=== PATIENT | male | born 1945 | race Caucasian/White ===

== ENCOUNTER → 2021-04-16 14:43 | Outpatient (BNVA) | payer MEDICARE, SELFPAY | PROVIDERS: PCP Nurse Practitioner; Visit Provider Urology | DX: N40.1 Benign prostatic hyperplasia with lower urinary tract symptoms (principal); R35.1 Nocturia; R39.12 Poor urinary stream | CPT/HCPCS: 51798; 99202 ==

== ENCOUNTER → 2021-06-05 09:52 | Outpatient (BNVA) | payer MEDICARE, SELFPAY | PROVIDERS: PCP Nurse Practitioner; Visit Provider Urology | DX: N40.1 Benign prostatic hyperplasia with lower urinary tract symptoms (principal); R35.1 Nocturia; R39.12 Poor urinary stream | CPT/HCPCS: 52000; 99212 ==

== ENCOUNTER → 2021-09-02 14:37 | Outpatient (BNVA) | payer MEDICARE, SELFPAY | PROVIDERS: PCP Nurse Practitioner; Visit Provider Urology | DX: N40.0 Benign prostatic hyperplasia without lower urinary tract symptoms (principal); R39.12 Poor urinary stream; R35.1 Nocturia; R39.15 Urgency of urination | CPT/HCPCS: Q3014 ==

== ENCOUNTER → 2021-10-29 14:51 | Outpatient (BNVA) | payer MEDICARE, SELFPAY | PROVIDERS: PCP Nurse Practitioner; Visit Provider Urology | DX: N40.1 Benign prostatic hyperplasia with lower urinary tract symptoms (principal); R35.0 Frequency of micturition; R39.15 Urgency of urination; R39.12 Poor urinary stream; N39.43 Post-void dribbling | CPT/HCPCS: 51798; 99212 ==

== ENCOUNTER 2021-12-08 09:42 | Outpatient (REF) | payer MEDICARE, SELFPAY ==
--- NOTE | 2021-12-08 10:50 | MHC.AU.AEV ---
Adult Audiological Evaluation Date of Visit: 12/08/21 Reason for Appointment: Patient has been noticing gradually increasing hearing difficulty. He finds himself saying huh? frequently and asking for repetition. He cannot hear when people try to talk to him from a distance or the next room over. He has difficulty understanding the dialogue in movies. History of vertigo. Recent ear infection in his left ear after an abrasion from using a Q-tip. Does patient feel they have a hearing loss?: Yes If Yes, Which Ear?: Both Ears Has hearing been tested previously?: No Hearing Handicap Inventory Does a hearing problem cause you to feel embarrassed when meeting new people?: Sometimes Does a hearing problem cause you to feel frustrated when talking to members of your family?: Sometimes Do you have difficulty when someone speaks in a whisper?: Yes Do you feel handicapped by a hearing problem?: Yes Does a hearing problem cause you difficulty when visiting friends, relatives, or neighbors?: Yes Does a hearing problem cause you to attend jehovah's witness service services less often than you would like?: No Does a hearing problem cause you to have arguments with family members?: No Does a hearing problem cause you difficulty when listening to TV or radio?: Yes Do you feel that any difficult with your hearing limits or hampers your personal or social life?: Sometimes Does a hearing problem cause you difficulty when in a restaurants with relatives or friends?: Yes HHIE SCORE: 26 Based on HHIE score, patient has: Severe perceived hearing handicap Ear History: Ear Deformity: None Reported Recent Ear Drainage: Left Ear Recent Ear Pain: Left Ear Family History of Hearing Loss?: Yes Recent Ear Infections: Left Ear Ear Infections in Childhood: None Reported History of Ear Wax Buildup: None Reported Previous Ear Surgery: None Reported Bothersome Tinnitus/Ringing/Noises in Ears: Both Ears Ear used on the phone: Right Ear Blocked/Full Sensation in Ear(s): Both Ears History of occupational noise exposure?: No History: Yes: [employer]- 6 months Medical History: Medical History: Patient reports history of numerous head injuries. Heart problems, hypertension, seizures, vertigo. Otoscopy: Right Ear: Unremarkable Left Ear: Unremarkable Tympanometry: Tympanometry performed due to: To assess integrity of the middle ear system Right Ear: Normal Middle Ear System (Type A) Left Ear: Normal Middle Ear System (Type A) Hearing Evaluation: Transducer(s) Used: Insert Earphones Method: Conventional Audiometry Stimuli Used: Pure Tones Right Ear: Description of Hearing: Normal/borderline to moderately-severe sensorineural hearing loss Left Ear: Description of Hearing: Normal/borderline to moderately-severe sensorineural hearing loss (left ear overall 5-10 dBHL worse than the right) Speech Recognition Threshold (SRT): Method Used: Recorded Lists Stimuli Used: Spondee Words Right Ear: 50 dBHL Left Ear: 50 dBHL Word Discrimination: Method: Monitored Live Voice Word Lists Used:: W-22 Right Ear: 84% at 80 dBHL Left Ear: 68% at 75 dBHL Most Comfortable Level (MCL): Right Ear: 80 dBHL Left Ear: 75 dBHL Recommendations: Audiological re-evaluation in one year. Follow-up with PCP or Ear, Nose, and Throat may be warranted to discuss asymmetry (left ear worse). Patient is a candidate for hearing aids. It is recommended that he contact his supplemental insurance to inquire about hearing aid benefits or discount plans. A product such as TV Ears may be beneficial to help him hear the television. Diagnosis: Primary Diagnosis: H90.3 Bilateral Sensorineural Hearing Loss Signature: Provider: Maya Perez, CCC-A
== END 2021-12-08 09:43 | disposition home or self-care (01) ==
LOC: HO.SH 09:42
PROVIDERS: Visit Provider Physician Assistant
DX: Z01.118 Encounter for examination of ears and hearing with other abnormal findings (principal); H90.3 Sensorineural hearing loss, bilateral
CPT/HCPCS: 92557; 92567

== ENCOUNTER → 2022-05-26 08:32 | Outpatient (BNVA) | payer MEDICARE, SELFPAY | PROVIDERS: PCP Nurse Practitioner; Visit Provider Urology | DX: N40.1 Benign prostatic hyperplasia with lower urinary tract symptoms (principal); R39.15 Urgency of urination; R39.12 Poor urinary stream; R35.1 Nocturia; N39.43 Post-void dribbling | CPT/HCPCS: 51798; 99212 ==

== ENCOUNTER → 2022-11-26 08:46 | Outpatient (BNVA) | payer MEDICARE, SELFPAY | PROVIDERS: PCP Nurse Practitioner; Visit Provider Urology | DX: N40.1 Benign prostatic hyperplasia with lower urinary tract symptoms (principal); R35.1 Nocturia; N39.43 Post-void dribbling | CPT/HCPCS: Q3014 ==

== ENCOUNTER 2023-05-28 08:30 | Outpatient (AMB) | payer MEDICARE, SELFPAY ==
--- NOTE | 2023-05-28 08:39 | MHC.OFFVIS ---
Intake Intake Visit Reasons: 6m follow up Intake Note: Patient is present for Follow Up PVR Urology Med: Terazosin, Tolterodine Antibiotic Allergy: None Blood Thinner: None Pharmacy: [facility] PVR: 0ML Allergies No Known Allergies Allergy (Verified 05/28/23 08:41) Medication List - Last Reconciled 05/28/23 by Med Doran MD atorvastatin 20 mg PO DAILY divalproex 1,000 mg PO BID fluticasone furoate-vilanterol 100-25 mcg/dose (Breo Ellipta) 1 ea inhalation DAILY folic acid 1 mg PO DAILY metoprolol succinate ER 100 mg PO BID multivitamin 1 tab PO DAILY olanzapine 5 mg PO DAILY oxybutynin chloride ER 5 mg PO DAILY 90 days sertraline 100 mg PO DAILY terazosin 10 mg PO BEDTIME 90 days thiamine HCl (vitamin B1) 100 mg PO BID thiamine mononitrate (vit B1) 100 mg PO BID zonisamide 200 mg PO BEDTIME HPI HPI Comments History of Present Illness Details Titus is a pleasant male. He is a patient of Dr. Brand. He seen for the following urologic conditions - lower urinary tract symptoms - postvoid dribbling - overactive bladder Combination anticholinergic and alpha danelle PVR 0 Continue good voiding parameters with combination terazosin 10 mg and tolterodine 2 mg Will switch to oxybutynin secondary to cost from his insurance company Overactive bladder Good response to quaternary anticholinergics Unable to afford co-pay Insurance company forcing prescription of oxybutynin As physician I will not be held responsible for any side effects from this medication - this will be the responsibility of the insurance company Lower urinary tract symptoms Longstanding with weakness of stream, urinary urgency and frequency with nocturia Current therapy combination therapy with terazosin 10 mg, tolterodine 2 mg Prior therapy terazosin 5 mg PSA 04/30 0.6 Cystoscopy 05/3121 grade 2 trabeculation with enlarged capacity Symptoms consistent with combination overactive bladder and stiff prostate Six month follow-up [facility] Medical History Angina pectoris Asthma Atrial fibrillation Bipolar 1 disorder BPH (benign prostatic hyperplasia) Chronic obstructive lung disease Review of Systems Const Denies chills and Denies fever(s) Card Reports no additional complaints and Denies syncope Resp Denies cough GI Denies abdominal pain and Denies heartburn Reports as per HPI and Denies change in libido Neuro Denies syncope Psych Denies change in libido Endo Denies change in libido Physical Exam Const General: cooperative, healthy appearing, comfortable and no acute distress Orientation/consciousness: patient oriented x3 HEENT Face and sinus: Yes normal facial exam Mouth: moist mucous membranes Neck Neck: Yes normal visual inspection, Yes full ROM and Yes trachea midline Chest Chest palpation & inspection: normal inspection of the chest Resp Effort & Inspection: normal respiratory effort, able to speak in complete sentences and no respiratory distress GI Inspection: Yes normal to inspection Back/Spine/Pelvis Cervical Spine: normal cervical lordosis Thoracic/Lumbar Spine: thoracic and lumbar spine normal to inspection Skin General skin exam: no rashes or lesions noted Neuro General: patient oriented x3, gait normal, tone normal and moves all extremities Extrem General: Yes normal to inspection and Yes capillary refill normal Office Procedures Post Void Residual Post Residual Void Post Void Residual (PVR): 0 [id number] Void Residual by ultrasound Results AMB Urinalysis, Automated UA Leukoctes 0 Jason/uL Last Edit by Maya Mejía [facility] on 05/28/23 08:50 UA Nitrite Negative Last Edit by Maya Mejía [facility] on 05/28/23 08:50 UA Urobilinogen 0.2 mg/dL Last Edit by Maya Mejía [facility] on 05/28/23 08:50 UA Protein 0 mg/dL Last Edit by Maya Mejía [facility] on 05/28/23 08:50 UA pH 6.5 Last Edit by Maya Mejía [facility] on 05/28/23 08:50 UA Blood 0 Gagan/uL Last Edit by Maya Mejía [facility] on 05/28/23 08:50 UA Specific [place] 1.010 Last Edit by Maya Mejía [facility] on 05/28/23 08:50 UA Ketone Negative Last Edit by Maya Mejía Tori on 05/28/23 08:50 UA Bilirubin 0 mg/dL Last Edit by Maya Mejía [facility] on 05/28/23 08:50 UA Glucose 0 mg/dL Last Edit by Maya Mejía [facility] on 05/28/23 08:50 Assessment & Plan Assessment & Plan (1) Urinary urgency: Code(s): R39.15 - Urgency of urination (2) Benign prostatic hyperplasia (BPH) with post-void dribbling: Code(s): N40.1 - Benign prostatic hyperplasia with lower urinary tract symptoms; N39.43 - Post-void dribbling (3) Nocturia more than twice per night: Code(s): R35.1 - Nocturia Plan 6 month follow-up Orders: Orders AMB Urinalysis Automated Today Z13.9 - Encounter for screening, unspecified AMB Post Void Residual by ultrasound Today N39.43 - Post-void dribbling, N40.1 - Benign prostatic hyperplasia with lower urinary tract symptoms Medications: Changed From tolterodine ER 2 mg PO DAILY 90 days 90 caps 1RF R39.15 - Urgency of urination To oxybutynin chloride ER 5 mg PO DAILY 90 days 90 tabs 1RF R39.15 - Urgency of urination Patient Instructions: Imaging studies, laboratory and physical exam results were discussed and reviewed in detail. No major barriers to patient understanding were identified. An opportunity to ask questions regarding the treatment plan was provided. All questions were answered. The patient expressed understanding and agreement with the above treatment plan. The patient is aware they should contact our office by phone for worsening of their current condition or the appearance of new urologic symptoms. Compliance is encouraged with any medications and followup testing that is ordered. It is a privilege to participate in the urologic care of your patient. If you have any questions or concerns regarding treatment for the above conditions, or other urologic issues, please do not hesitate to contact me. The office telephone contact is [phone]. This note is constructed using voice recognition software. While every effort has been made to ensure accuracy track production engineer errors may have been included. Yours sincerely, Dr Med Doran MD, [facility] - Urology Providers of Expert, Compassionate Care for the Genitourinary System Coding Level of Care Code Est Pt Level 4 (26172) Diagnoses Urinary urgency R39.15 Benign prostatic hyperplasia (BPH) with post-void dribbling N40.1; N39.43 Nocturia more than twice per night R35.1 CPT Codes Post Residual Void - PVR CPT Code: 74344-[id number] Void Residual by ultrasound ([id number])
== END 2023-05-28 09:12 | disposition home or self-care (01) ==
PROVIDERS: PCP Nurse Practitioner; Visit Provider Urology
DX: N40.1 Benign prostatic hyperplasia with lower urinary tract symptoms (principal); N39.43 Post-void dribbling; R35.1 Nocturia
CPT/HCPCS: 99214

== ENCOUNTER → 2023-05-28 08:30 | Outpatient (BNVA) | payer MEDICARE, SELFPAY | PROVIDERS: Visit Provider Urology | DX: N40.1 Benign prostatic hyperplasia with lower urinary tract symptoms (principal); N13.8 Other obstructive and reflux uropathy; N39.43 Post-void dribbling; N32.81 Overactive bladder; R35.1 Nocturia | CPT/HCPCS: 51798; 81003; 99212 ==

== ENCOUNTER 2024-01-18 10:42 | Outpatient (AMB) | payer MEDICARE, SELFPAY ==
--- NOTE | 2024-01-18 10:49 | A.OFFVIS_ITS ---
Intake Intake Visit Reasons: 6M Med Review(Confirmed) Intake Note: Patient is Present for Follow Up Urology Medication: Oxybutynin, Terazosin, Antibiotic Allergies: None Blood Thinners: None Pharmacy: [facility] PVR: 0 Patient states that he has been taking OTC medication for Diarrhea and he states that since he has been on this he has been experiencing frequency Allergies No Known Allergies Allergy (Verified 01/18/24 10:52) HPI HPI Comments History of Present Illness Details Titus is a pleasant male. He is a patient of Dr. Brand. He seen for the following urologic conditions - lower urinary tract symptoms - postvoid dribbling - overactive bladder Combination anticholinergic and alpha danelle PVR 0 Combination therapy with terazosin 10 mg and oxybutynin Noticing more urgency and frequency Recommend office cystoscopy Overactive bladder Good response to quaternary anticholinergics - tolterodine Unable to afford co-pay Insurance company forcing prescription of oxybutynin As physician I will not be held responsible for any side effects from this medication - this will be the responsibility of the insurance company who was aware of the side effects that anticholinergics cause on over 75-year-old patient is including confusion, memory loss. Lower urinary tract symptoms Longstanding with weakness of stream, urinary urgency and frequency with nocturia Current therapy combination therapy with terazosin 10 mg, tolterodine 2 mg Prior therapy terazosin 5 mg PSA 04/30 0.6 Cystoscopy 05/3121 grade 2 trabeculation with enlarged capacity Symptoms consistent with combination overactive bladder and stiff prostate Six month follow-up [facility] Medical History Asthma Bipolar 1 disorder Chronic obstructive lung disease Atrial fibrillation Angina pectoris BPH (benign prostatic hyperplasia) Review of Systems Const Denies chills and Denies fever(s) Card Reports no additional complaints and Denies syncope Resp Denies cough GI Denies abdominal pain and Denies heartburn Reports as per HPI and Denies change in libido Neuro Denies syncope Psych Denies change in libido Endo Denies change in libido Physical Exam Const General: cooperative, healthy appearing, comfortable and no acute distress Orientation/consciousness: patient oriented x3 HEENT Face and sinus: Yes normal facial exam Mouth: moist mucous membranes Neck Neck: Yes normal visual inspection, Yes full ROM and Yes trachea midline Chest Chest palpation & inspection: normal inspection of the chest Resp Effort & Inspection: normal respiratory effort, able to speak in complete sentences and no respiratory distress GI Inspection: Yes normal to inspection Back/Spine/Pelvis Cervical Spine: normal cervical lordosis Thoracic/Lumbar Spine: thoracic and lumbar spine normal to inspection Skin General skin exam: no rashes or lesions noted Neuro General: patient oriented x3, gait normal, tone normal and moves all extremities Extrem General: Yes normal to inspection and Yes capillary refill normal Office Procedures Post Void Residual Post Residual Void Post Void Residual (PVR): 0 [id number] Void Residual by ultrasound Assessment & Plan Assessment & Plan (1) Benign prostatic hyperplasia (BPH) with post-void dribbling: Code(s): N40.1 - Benign prostatic hyperplasia with lower urinary tract symptoms; N39.43 - Post-void dribbling (2) Urinary urgency: Code(s): R39.15 - Urgency of urination (3) Weak urinary stream: Code(s): R39.12 - Poor urinary stream Plan Cystoscopy office Orders: Orders AMB Post Void Residual by ultrasound Today N39.43 - Post-void dribbling, N40.1 - Benign prostatic hyperplasia with lower urinary tract symptoms Patient Instructions: Imaging studies, laboratory and physical exam results were discussed and reviewed in detail. No major barriers to patient understanding were identified. An opportunity to ask questions regarding the treatment plan was provided. All questions were answered. The patient expressed understanding and agreement with the above treatment plan. The patient is aware they should contact our office by phone for worsening of their current condition or the appearance of new urologic symptoms. Compliance is encouraged with any medications and followup testing that is ordered. It is a privilege to participate in the urologic care of your patient. If you have any questions or concerns regarding treatment for the above conditions, or other urologic issues, please do not hesitate to contact me. The office telephone contact is [phone]. This note is constructed using voice recognition software. While every effort has been made to ensure accuracy real estate investor errors may have been included. Yours sincerely, Dr Med Doran MD, [facility] - Urology Providers of Expert, Compassionate Care for the Genitourinary System Coding Level of Care Code Est Pt Level 4 (53898) Diagnoses Benign prostatic hyperplasia (BPH) with post-void dribbling N40.1; N39.43 Urinary urgency R39.15 Weak urinary stream R39.12 CPT Codes Post Residual Void - PVR CPT Code: 06571-[id number] Void Residual by ultrasound ([id number])
== END 2024-01-18 11:41 | disposition home or self-care (01) ==
PROVIDERS: PCP Nurse Practitioner; Visit Provider Urology
DX: N40.1 Benign prostatic hyperplasia with lower urinary tract symptoms (principal); N39.43 Post-void dribbling; R39.15 Urgency of urination; R39.12 Poor urinary stream
CPT/HCPCS: 99214

== ENCOUNTER → 2024-01-18 10:42 | Outpatient (BNVA) | payer MEDICARE, SELFPAY | PROVIDERS: PCP Nurse Practitioner; Visit Provider Urology | DX: N40.1 Benign prostatic hyperplasia with lower urinary tract symptoms (principal); N39.43 Post-void dribbling; R39.15 Urgency of urination; R39.12 Poor urinary stream | CPT/HCPCS: 51798; 99212 ==

== ENCOUNTER 2024-02-01 08:39 | Outpatient (AMB) | payer MEDICARE, SELFPAY ==
--- NOTE | 2024-02-01 08:57 | A.OFFVIS_ITS ---
Intake Visit Reasons: cysto(Confirmed) Intake Note: Patient is Present for Cystoscopy Urology Med: Oxybutynin, Terazosin Antibiotic Allergy:None Blood Thinner:None URO- G Disposable Cystoscope lot: [id number] exp:08/19/2026 Allergies No Known Allergies Allergy (Verified 02/01/24 09:00) HPI Comments Details: Titus is a pleasant male. He is a patient of Dr. Brand. He seen for the following urologic conditions - lower urinary tract symptoms - postvoid dribbling - overactive bladder Cystoscopy for urgency and frequency - adequate stream Combination anticholinergic and alpha danelle PVR 0 Combination therapy with terazosin 10 mg and oxybutynin Over 76. Switch from oxybutynin to covered beta agonist. Per insurance appears to be Gemtessa. Overactive bladder Good response to quaternary anticholinergics - tolterodine Unable to afford co-pay Insurance company forcing prescription of oxybutynin As physician I will not be held responsible for any side effects from oxybutynin - this will be the responsibility of the insurance company who was aware of the side effects that anticholinergics cause on over 75-year-old patient is including confusion, memory loss. Lower urinary tract symptoms Longstanding with weakness of stream, urinary urgency and frequency with nocturia Current therapy combination therapy with terazosin 10 mg, tolterodine 2 mg Prior therapy terazosin 5 mg PSA 04/30 0.6 Cystoscopy 05/3121 grade 2 trabeculation with enlarged capacity - 02/0124 grade 2 trabeculation with small diverticula Symptoms consistent with combination overactive bladder and stiff prostate Six month follow-up [facility] Medical History Asthma Bipolar 1 disorder Chronic obstructive lung disease Atrial fibrillation Angina pectoris BPH (benign prostatic hyperplasia) Review of Systems Const Denies chills and Denies fever(s) Card Reports no additional complaints and Denies syncope Resp Denies cough GI Denies abdominal pain and Denies heartburn Reports as per HPI and Denies change in libido Neuro Denies syncope Psych Denies change in libido Endo Denies change in libido Physical Exam Const General: cooperative, healthy appearing, comfortable and no acute distress Orientation/consciousness: patient oriented x3 HEENT Face and sinus: Yes normal facial exam Mouth: moist mucous membranes Neck Neck: Yes normal visual inspection, Yes full ROM and Yes trachea midline Chest Chest palpation & inspection: normal inspection of the chest Resp Effort & Inspection: normal respiratory effort, able to speak in complete sentences and no respiratory distress GI Inspection: Yes normal to inspection Back/Spine/Pelvis Cervical Spine: normal cervical lordosis Thoracic/Lumbar Spine: thoracic and lumbar spine normal to inspection Skin General skin exam: no rashes or lesions noted Neuro General: patient oriented x3, gait normal, tone normal and moves all extremities Extrem General: Yes normal to inspection and Yes capillary refill normal Office Procedures Cystoscopy Consent Discussed risk and benefit or proposed procedure with the patient. Information consent for procedure given to the patient. Discussed technical aspects, risks, benefits and alternatives in full. Addressed all of the patient's questions and concerns regarding the procedure. The patient demonstrated knowledge and understanding. They wish to proceed with this procedure. Preparation The patient was prepped in the usual manner. A banbury mill operator was present and in the room. Genitalia was prepped with betadine solution in a sterile manner. Lidocaine Jelly 2% was placed into the urethra and 16Fr flexible Olympus cystoscope was inserted into the meatus after adequate lubrication. Procedure Cystoscopy performed using a disposable Urovue digital 16 Bruneian cystoscope. 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 - [id number] DISPOSABLE SCOPE URO-G FLEXIBLE SCOPE Procedure code (CPT) selection complete Office Meds lidocaine HCl 2 % mucosal jelly in applicator Performing Provider: Med Doran MD [place] [facility] [facility] Administered by: Oleksandr Zhao LPN on 02/01/24 09:09 Dose Route Admin Location Dispensed Lot Number Expiration Date [facility] [employer] Waste Technician 10 mL intra-urethral 10 mL nitrofurantoin monohydrate/macrocrystals 100 mg capsule Performing Provider: Med Doran MD [place] [facility] [facility] Administered by: Oleksandr Zhao LPN on 02/01/24 09:09 Dose Route Admin Location Dispensed Lot Number Expiration Date [facility] [employer] Waste Technician 100 mg PO 1 cap naproxen 500 mg tablet Performing Provider: Med Doran MD [place] [facility] [place] [facility] Administered by: Oleksandr Zhao LPN on 02/01/24 09:09 Dose Route Admin Location Dispensed Lot Number Expiration Date [facility] [employer] Waste Technician 500 mg PO 1 tab Results AMB Urinalysis, Automated UA Leukoctes 0 Jason/uL Last Edit by Maya Mejía Tori on 02/01/24 09:10 UA Nitrite Negative Last Edit by Maya Mejía A on 02/01/24 09:10 UA Urobilinogen 0.2 mg/dL Last Edit by Maya Mejía A on 02/01/24 09:1 0 UA Protein 15 mg/dL Last Edit by Maya Mejía A on 02/01/24 09:10 UA pH 5.5 Last Edit by Maya Mejía A on 02/01/24 09:10 UA Blood 0 Gagan/uL Last Edit by Maya Mejía A on 02/01/24 09:10 UA Specific [place] 1.020 Last Edit by Maya Mejía [facility] on 02/01/24 09: 10 UA Ketone Negative Last Edit by Maya Mejía A on 02/01/24 09:10 UA Bilirubin 0 mg/dL Last Edit by Maya Mejía A on 02/01/24 09:10 UA Glucose 0 mg/dL Last Edit by Maya Mejía [facility] on 02/01/24 09:10 Results Reviewed Results Reviewed: Laboratory Last Values Urine pH (Auto) 5.5 02/01/24 09:01 Specific [place] (Auto) 1.020 02/01/24 09:01 Urine Protein (Auto) 15 mg/dL 02/01/24 09:01 Glucose (UA)(Auto) 0 mg/dL 02/01/24 09:01 Urine Ketones (Auto) Negative 02/01/24 09:01 Urine Blood (Auto) 0 Gagan/uL 02/01/24 09:01 Urine Nitrite (Auto) Negative 02/01/24 09:01 Urine Bilirubin (Auto) 0 mg/dL 02/01/24 09:01 Urine Urobilinogen (Auto) 0.2 mg/dL 02/01/24 09:01 Leukocyte Esterase (Auto) 0 Jason/uL 02/01/24 09:01 Assessment & Plan Assessment & Plan (1) Overactive bladder: Code(s): N32.81 - Overactive bladder Category: Medical (2) Benign prostatic hyperplasia (BPH) with post-void dribbling: Code(s): N40.1 - Benign prostatic hyperplasia with lower urinary tract symptoms; N39.43 - Post-void dribbling Category: Medical (3) Urinary urgency: Code(s): R39.15 - Urgency of urination Category: Medical Plan Six-month follow-up Orders: Orders AMB Cystoscopy Today N39.43 - Post-void dribbling, N40.1 - Benign prostatic hyperplasia with lower urinary tract symptoms AMB Urinalysis Automated Today N39.43 - Post-void dribbling, N40.1 - Benign prostatic hyperplasia with lower urinary tract symptoms, Z13.9 - Encounter for screening, unspecified Medications: New Gemtesa (vibegron) 75 mg PO DAILY 30 days 30 tabs 5RF NS N32.81 - Overactive bladder Patient Instructions: Imaging studies, laboratory and physical exam results were discussed and reviewed in detail. No major barriers to patient understanding were identified. An opportunity to ask questions regarding the treatment plan was provided. All questions were answered. The patient expressed understanding and agreement with the above treatment plan. The patient is aware they should contact our office by phone for worsening of their current condition or the appearance of new urologic symptoms. Compliance is encouraged with any medications and followup testing that is ordered. It is a privilege to participate in the urologic care of your patient. If you have any questions or concerns regarding treatment for the above conditions, or other urologic issues, please do not hesitate to contact me. The office telephone contact is [phone]. This note is constructed using voice recognition software. While every effort has been made to ensure accuracy forest fire specialist supervisor errors may have been included. Yours sincerely, Dr Med Doran MD, [facility] - Urology Providers of Expert, Compassionate Care for the Genitourinary System
== END 2024-02-01 09:29 | disposition home or self-care (01) ==
PROVIDERS: PCP Nurse Practitioner; Visit Provider Urology
DX: N32.81 Overactive bladder (principal); N40.1 Benign prostatic hyperplasia with lower urinary tract symptoms; N39.43 Post-void dribbling; R39.15 Urgency of urination; Z13.9 Encounter for screening, unspecified
CPT/HCPCS: 52000; 99214

== ENCOUNTER → 2024-02-01 08:39 | Outpatient (BNVA) | payer MEDICARE, SELFPAY | PROVIDERS: PCP Nurse Practitioner; Visit Provider Urology | DX: N40.1 Benign prostatic hyperplasia with lower urinary tract symptoms (principal); N32.81 Overactive bladder; R39.15 Urgency of urination; N39.43 Post-void dribbling | CPT/HCPCS: 52000; 81003; 99212 ==

== ENCOUNTER 2024-05-10 10:13 | Outpatient (AMB) | payer MEDICARE, SELFPAY ==
--- NOTE | 2024-05-10 10:27 | MHC.OFFVIS ---
Intake Visit Reasons: PVR/Med Review(Gemtesa) Intake Note: Patient is Present for PVR/Med review Urology Med: Oxybutynin, Terazosin (Pt is not taking Gemtesa) Antibiotic Allergy:None Blood Thinner: None Last PVR: 0 Todays PVR: 43 Police Artist Required: No Accompanied by: Self / Same As Patient Allergies No Known Allergies Allergy (Verified 05/10/24 10:30) Medication List - Last Reconciled 05/10/24 by Med Doran MD atorvastatin 20 mg PO DAILY divalproex 1,000 mg PO BID fluticasone furoate-vilanterol 100-25 mcg/dose (Breo Ellipta) 1 ea inhalation DAILY folic acid 1 mg PO DAILY metoprolol succinate ER 100 mg PO BID multivitamin 1 tab PO DAILY olanzapine 5 mg PO DAILY sertraline 100 mg PO DAILY terazosin 10 mg PO BEDTIME 90 days thiamine HCl (vitamin B1) 100 mg PO BID thiamine mononitrate (vit B1) 100 mg PO BID vibegron 75 mg PO DAILY 30 days zonisamide 200 mg PO BEDTIME HPI Comments Details: Titus is a pleasant male. He is a patient of Dr. Brand. He seen for the following urologic conditions - lower urinary tract symptoms - postvoid dribbling - overactive bladder Combination anticholinergic and alpha danelle PVR 0 Combination therapy with terazosin 10 mg and oxybutynin Over 76. Switch from oxybutynin to covered beta agonist. Per insurance appears to be Gemtessa. 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 Lower urinary tract symptoms Longstanding with weakness of stream, urinary urgency and frequency with nocturia Current therapy combination therapy with terazosin 10 mg, tolterodine 2 mg Prior therapy terazosin 5 mg PSA 04/30 0.6 Cystoscopy 05/3121 grade 2 trabeculation with enlarged capacity - 02/0124 grade 2 trabeculation with small diverticula Symptoms consistent with combination overactive bladder and stiff prostate Six month follow-up [facility], [facility] Medical History Asthma Bipolar 1 disorder Chronic obstructive lung disease Atrial fibrillation Angina pectoris BPH (benign prostatic hyperplasia) Review of Systems Const Denies chills and Denies fever(s) Card Reports no additional complaints and Denies syncope Resp Denies cough GI Denies abdominal pain and Denies heartburn Reports as per HPI and Denies change in libido Neuro Denies syncope Psych Denies change in libido Endo Denies change in libido Physical Exam Const General: cooperative, healthy appearing, comfortable and no acute distress Orientation/consciousness: patient oriented x3 HEENT Face and sinus: Yes normal facial exam Mouth: moist mucous membranes Neck Neck: Yes normal visual inspection, Yes full ROM and Yes trachea midline Chest Chest palpation & inspection: normal inspection of the chest Resp Effort & Inspection: normal respiratory effort, able to speak in complete sentences and no respiratory distress GI Inspection: Yes normal to inspection Back/Spine/Pelvis Cervical Spine: normal cervical lordosis Thoracic/Lumbar Spine: thoracic and lumbar spine normal to inspection Skin General skin exam: no rashes or lesions noted Neuro General: patient oriented x3, gait normal, tone normal and moves all extremities Extrem General: Yes normal to inspection and Yes capillary refill normal Office Procedures Post Void Residual Post Residual Void Post Void Residual (PVR): 43 [id number] Void Residual by ultrasound Assessment & Plan Assessment & Plan (1) Overactive bladder: Code(s): N32.81 - Overactive bladder Category: Medical (2) Benign prostatic hyperplasia (BPH) with post-void dribbling: Code(s): N40.1 - Benign prostatic hyperplasia with lower urinary tract symptoms; N39.43 - Post-void dribbling Category: Medical (3) Urinary urgency: Code(s): R39.15 - Urgency of urination Category: Medical Plan Two month follow-up tele Orders: Orders AMB Post Void Residual by ultrasound Today N39.43 - Post-void dribbling, N40.1 - Benign prostatic hyperplasia with lower urinary tract symptoms Medications: New vibegron Take daily 75 mg PO DAILY 30 days 30 tabs 1RF N32.81 - Overactive bladder Discontinued oxybutynin chloride ER Discontinued Reason: Patient Completed Course 5 mg PO DAILY 90 days 90 tabs 1RF R39.15 - Urgency of urination Patient Instructions: Imaging studies, laboratory and physical exam results were discussed and reviewed in detail. No major barriers to patient understanding were identified. An opportunity to ask questions regarding the treatment plan was provided. All questions were answered. The patient expressed understanding and agreement with the above treatment plan. The patient is aware they should contact our office by phone for worsening of their current condition or the appearance of new urologic symptoms. Compliance is encouraged with any medications and followup testing that is ordered. It is a privilege to participate in the urologic care of your patient. If you have any questions or concerns regarding treatment for the above conditions, or other urologic issues, please do not hesitate to contact me. The office telephone contact is [phone]. This note is constructed using voice recognition software. While every effort has been made to ensure accuracy barrel cap setter errors may have been included. Yours sincerely, Dr Med Doran MD, [facility] - Urology Providers of Expert, Compassionate Care for the Genitourinary System Coding Level of Care Code Est Pt Level 4 (86726) Diagnoses Overactive bladder N32.81 Benign prostatic hyperplasia (BPH) with post-void dribbling N40.1; N39.43 Urinary urgency R39.15 CPT Codes Post Residual Void - PVR CPT Code: 39537-Bsns Void Residual by ultrasound ([id number])
== END 2024-05-10 11:08 | disposition home or self-care (01) ==
PROVIDERS: PCP Nurse Practitioner; Visit Provider Urology
DX: N32.81 Overactive bladder (principal); N40.1 Benign prostatic hyperplasia with lower urinary tract symptoms; N39.43 Post-void dribbling; R39.15 Urgency of urination
CPT/HCPCS: 99214

== ENCOUNTER → 2024-05-10 10:13 | Outpatient (BNVA) | payer MEDICARE, SELFPAY | PROVIDERS: PCP Nurse Practitioner; Visit Provider Urology | DX: N32.81 Overactive bladder (principal); N40.1 Benign prostatic hyperplasia with lower urinary tract symptoms; N39.43 Post-void dribbling; R39.15 Urgency of urination | CPT/HCPCS: 51798; 99212 ==

== ENCOUNTER 2024-07-06 11:03 | Outpatient (AMB) | payer MEDICARE, SELFPAY ==
--- NOTE | 2024-07-06 11:04 | MHC.OFFVIS ---
Intake Visit Reasons: 2M Med Review-Myrbetriq Intake Note: Patient is Present for Telephone Follow Up Med Review Urology Med:Terazosin, myrbetriq Antibiotic Allergy: None Blood Thinner:None Allergies No Known Allergies Allergy (Verified 05/10/24 10:30) HPI Comments Details: Titus is a pleasant male. He is a patient of Dr. Brand. He seen for the following urologic conditions - lower urinary tract symptoms - postvoid dribbling - overactive bladder Telemedicine Evaluation 15 min Consultation [employer] Terrell Video attempted Combination anticholinergic and alpha danelle PVR 0 Combination therapy with terazosin 10 mg and gemtessa Over 76. Switch from oxybutynin to covered beta agonist. Per insurance appears to be Gemtessa. 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 Lower urinary tract symptoms Longstanding with weakness of stream, urinary urgency and frequency with nocturia Current therapy combination therapy with terazosin 10 mg, tolterodine 2 mg Prior therapy terazosin 5 mg PSA 04/30 0.6 Cystoscopy 05/3121 grade 2 trabeculation with enlarged capacity - 02/0124 grade 2 trabeculation with small diverticula Symptoms consistent with combination overactive bladder and stiff prostate Six month follow-up [facility] Medical History Asthma Bipolar 1 disorder Chronic obstructive lung disease Atrial fibrillation Angina pectoris BPH (benign prostatic hyperplasia) Review of Systems Const All systems reviewed & are unremarkable except as noted in HPI and below Reports no additional complaints Resp Reports no additional complaints GI Reports no additional complaints Reports as per HPI Musc Reports no additional complaints Physical Exam Telemedicine evaluation Appropriate responses Regular breathing rate and rhythm HEENT Head: Yes normal to inspection Ears: hearing grossly normal bilaterally Eyes General: appearance normal, both eyes and all related structures Neck Neck: Yes normal visual inspection Chest Chest palpation & inspection: normal inspection of the chest Resp Effort & Inspection: normal respiratory effort and able to speak in complete sentences Telehealth Telehealth Telehealth Platform: [employer] Location of provider rendering services: practice address Location of patient: address on file Patient Identification confirmed using: Name, : Yes Telehealth method: video Patient verbally consented to treatment: Yes Patient verbally consented to billing insurance company: Yes Patient informed of any privacy concerns related to visit: Yes Minutes spent on Phone/Video with Pt.: 15 Assessment & Plan Assessment & Plan (1) Nocturia more than twice per night: Code(s): R35.1 - Nocturia Category: Medical (2) Overactive bladder: Code(s): N32.81 - Overactive bladder Category: Medical (3) Urinary urgency: Code(s): R39.15 - Urgency of urination Category: Medical Plan 2 month follow-up Repeat trial of Gemtessa Medications: Refilled vibegron Take daily 75 mg PO DAILY 30 days 30 tabs 1RF N32.81 - Overactive bladder Patient Instructions: Imaging studies, laboratory and physical exam results were discussed and reviewed in detail. No major barriers to patient understanding were identified. An opportunity to ask questions regarding the treatment plan was provided. All questions were answered. The patient expressed understanding and agreement with the above treatment plan. The patient is aware they should contact our office by phone for worsening of their current condition or the appearance of new urologic symptoms. Compliance is encouraged with any medications and followup testing that is ordered. It is a privilege to participate in the urologic care of your patient. If you have any questions or concerns regarding treatment for the above conditions, or other urologic issues, please do not hesitate to contact me. The office telephone contact is [phone]. This note is constructed using voice recognition software. While every effort has been made to ensure accuracy lacquer coater errors may have been included. Yours sincerely, Dr Med Doran MD, [facility] - Urology Providers of Expert, Compassionate Care for the Genitourinary System Coding Level of Care Code Tele Est Pt Level 3 (75811) Diagnoses Nocturia more than twice per night R35.1 Overactive bladder N32.81 Urinary urgency R39.15
== END 2024-07-06 11:19 | disposition home or self-care (01) ==
LOC: HO.HUSH 11:03
PROVIDERS: PCP Nurse Practitioner; Visit Provider Urology
DX: R35.1 Nocturia (principal); N32.81 Overactive bladder; R39.15 Urgency of urination
CPT/HCPCS: 99213

== ENCOUNTER → 2024-07-06 11:03 | Outpatient (BNVA) | payer MEDICARE, SELFPAY | PROVIDERS: PCP Nurse Practitioner; Visit Provider Urology ==

== ENCOUNTER 2024-08-02 10:29 | Outpatient (AMB) | payer MEDICARE, SELFPAY ==
--- NOTE | 2024-08-02 10:34 | A.OFFVIS_ITS ---
Intake Visit Reasons: PVR Follow Up Intake Note: Patient is present for PVR/Med Review Urology Med: Terazosin, Gemtesa Antibiotic Allergy:None Blood Thinner: None Last PVR:43ML Todays PVR: 20 Allergies No Known Allergies Allergy (Verified 05/10/24 10:30) HPI Comments Details: Titus is a pleasant male. He is a patient of Dr. Brand. He seen for the following urologic conditions - lower urinary tract symptoms - postvoid dribbling - overactive bladder Combination anticholinergic and alpha danelle PVR 0 Off beta agonist since cost too much money Did notice that trospium is an option for his insurance Trial trospium with 2 month follow-up Over 76. Switch from oxybutynin to covered beta agonist. Per insurance appears to be Gemtessa. 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 Lower urinary tract symptoms Longstanding with weakness of stream, urinary urgency and frequency with nocturia Current therapy combination therapy with terazosin 10 mg, tolterodine 2 mg Prior therapy terazosin 5 mg PSA 04/30 0.6 Cystoscopy 05/3121 grade 2 trabeculation with enlarged capacity - 02/0124 grade 2 trabeculation with small diverticula Symptoms consistent with combination overactive bladder and stiff prostate [facility] Medical History Asthma Bipolar 1 disorder Chronic obstructive lung disease Atrial fibrillation Angina pectoris BPH (benign prostatic hyperplasia) Review of Systems Const Denies chills and Denies fever(s) Card Reports no additional complaints and Denies syncope Resp Denies cough GI Denies abdominal pain and Denies heartburn Reports as per HPI and Denies change in libido Neuro Denies syncope Psych Denies change in libido Endo Denies change in libido Physical Exam Const General: cooperative, healthy appearing, comfortable and no acute distress Orientation/consciousness: patient oriented x3 HEENT Face and sinus: Yes normal facial exam Mouth: moist mucous membranes Neck Neck: Yes normal visual inspection, Yes full ROM and Yes trachea midline Chest Chest palpation & inspection: normal inspection of the chest Resp Effort & Inspection: normal respiratory effort, able to speak in complete sentences and no respiratory distress GI Inspection: Yes normal to inspection Back/Spine/Pelvis Cervical Spine: normal cervical lordosis Thoracic/Lumbar Spine: thoracic and lumbar spine normal to inspection Skin General skin exam: no rashes or lesions noted Neuro General: patient oriented x3, gait normal, tone normal and moves all extremities Extrem General: Yes normal to inspection and Yes capillary refill normal Office Procedures Post Void Residual Post Residual Void Post Void Residual (PVR): 20 [id number]-[id number] Void Residual by ultrasound Results AMB Urinalysis, Automated UA Leukoctes 0 Jason/uL Last Edit by Maya [facility] on 08/02/24 10:47 UA Nitrite Negative Last Edit by Maya [facility] on 08/02/24 10:47 UA Urobilinogen 0.2 mg/dL Last Edit by Maya [facility] on 08/02/24 10:4 7 UA Protein 15 mg/dL Last Edit by Maya [facility] on 08/02/24 10:47 UA pH 6.5 Last Edit by Maya [facility] on 08/02/24 10:47 UA Blood 80 Gagan/uL Last Edit by Maya [facility] on 08/02/24 10:47 UA Specific [place] 1.010 Last Edit by Maya [facility] on 08/02/24 10: 47 UA Ketone Negative Last Edit by Maya Me[facility] on 08/02/24 10:47 UA Bilirubin 0 mg/dL Last Edit by Maya [facility] on 08/02/24 10:47 UA Glucose 0 mg/dL Last Edit by Maya [facility] on 08/02/24 10:47 Results Reviewed Results Reviewed: Laboratory Last Values Urine pH (Auto) 6.5 08/02/24 10:34 Specific [place] (Auto) 1.010 08/02/24 10:34 Urine Protein (Auto) 15 mg/dL 08/02/24 10:34 Glucose (UA)(Auto) 0 mg/dL 08/02/24 10:34 Urine Ketones (Auto) Negative 08/02/24 10:34 Urine Blood (Auto) 80 Gagan/uL 08/02/24 10:34 Urine Nitrite (Auto) Negative 08/02/24 10:34 Urine Bilirubin (Auto) 0 mg/dL 08/02/24 10:34 Urine Urobilinogen (Auto) 0.2 mg/dL 08/02/24 10:34 Leukocyte Esterase (Auto) 0 Jason/uL 08/02/24 10:34 Assessment & Plan Assessment & Plan (1) Overactive bladder: Code(s): N32.81 - Overactive bladder Category: Medical (2) Benign prostatic hyperplasia (BPH) with post-void dribbling: Code(s): N40.1 - Benign prostatic hyperplasia with lower urinary tract symptoms; N39.43 - Post-void dribbling Category: Medical Plan Two month follow-up Orders: Orders AMB Urinalysis Automated Today Z13.9 - Encounter for screening, unspecified AMB Post Void Residual by ultrasound Today N39.43 - Post-void dribbling, N40.1 - Benign prostatic hyperplasia with lower urinary tract symptoms Medications: New trospium administer on an empty stomach 20 mg PO BID 30 days 60 tabs 1RF N32.81 - Overactive bladder Discontinued mirabegron ER (Myrbetriq) Discontinued Reason: Patient Completed Course 25 mg PO DAILY 30 days 30 tabs 1RF Patient Instructions: Imaging studies, laboratory and physical exam results were discussed and reviewed in detail. No major barriers to patient understanding were identified. An opportunity to ask questions regarding the treatment plan was provided. All questions were answered. The patient expressed understanding and agreement with the above treatment plan. The patient is aware they should contact our office by phone for worsening of their current condition or the appearance of new urologic symptoms. Compliance is encouraged with any medications and followup testing that is ordered. It is a privilege to participate in the urologic care of your patient. If you have any questions or concerns regarding treatment for the above conditions, or other urologic issues, please do not hesitate to contact me. The office telephone contact is [phone]. This note is constructed using voice recognition software. While every effort has been made to ensure accuracy client services specialist errors may have been included. Yours sincerely, Dr Med Doran MD, [facility] - Urology Providers of Expert, Compassionate Care for the Genitourinary System Coding Level of Care Code Est Pt Level 4 (63044) Diagnoses Overactive bladder N32.81 Benign prostatic hyperplasia (BPH) with post-void dribbling N40.1; N39.43 CPT Codes Post Residual Void - PVR CPT Code: 38877-Dsvx Void Residual by ultrasound ([id number])
== END 2024-08-02 11:01 | disposition home or self-care (01) ==
PROVIDERS: PCP Nurse Practitioner; Visit Provider Urology
DX: N32.81 Overactive bladder (principal); N40.1 Benign prostatic hyperplasia with lower urinary tract symptoms; N39.43 Post-void dribbling; Z13.9 Encounter for screening, unspecified
CPT/HCPCS: 99214

== ENCOUNTER → 2024-08-02 10:29 | Outpatient (BNVA) | payer MEDICARE, SELFPAY | PROVIDERS: PCP Nurse Practitioner; Visit Provider Urology | DX: N40.1 Benign prostatic hyperplasia with lower urinary tract symptoms (principal); N32.81 Overactive bladder; N39.43 Post-void dribbling | CPT/HCPCS: 51798; 81003; 99212 ==

== ENCOUNTER 2024-08-31 11:36 | Outpatient (AMB) | payer MEDICARE, SELFPAY ==
--- NOTE | 2024-08-31 11:36 | MHC.OFFVIS ---
Intake Visit Reasons: 2M Med Review(trospium) Allergies No Known Allergies Allergy (Verified 05/10/24 10:30) HPI Comments Details: Titus is a pleasant male. He is a patient of Dr. Brand. He seen for the following urologic conditions - lower urinary tract symptoms - postvoid dribbling - overactive bladder Telemedicine Evaluation 15 min Consultation [employer] Terrell Video attempted Two month follow-up trial trospium Beta agonist had not been covered by insurance Significant benefit Would like to continue Prescription provided Six-month follow-up Over 76. Switch from oxybutynin to covered beta agonist. 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 Lower urinary tract symptoms Longstanding with weakness of stream, urinary urgency and frequency with nocturia Current therapy combination therapy with terazosin 10 mg, tolterodine 2 mg Prior therapy terazosin 5 mg PSA 04/30 0.6 Cystoscopy 05/3121 grade 2 trabeculation with enlarged capacity - 02/0124 grade 2 trabeculation with small diverticula Symptoms consistent with combination overactive bladder and stiff prostate PFSH Medical History Asthma Bipolar 1 disorder Chronic obstructive lung disease Atrial fibrillation Angina pectoris BPH (benign prostatic hyperplasia) Review of Systems Const All systems reviewed & are unremarkable except as noted in HPI and below Reports no additional complaints Resp Reports no additional complaints GI Reports no additional complaints Reports as per HPI Musc Reports no additional complaints Physical Exam Telemedicine evaluation Appropriate responses Regular breathing rate and rhythm HEENT Head: Yes normal to inspection Ears: hearing grossly normal bilaterally Eyes General: appearance normal, both eyes and all related structures Neck Neck: Yes normal visual inspection Chest Chest palpation & inspection: normal inspection of the chest Resp Effort & Inspection: normal respiratory effort and able to speak in complete sentences Telehealth Telehealth Telehealth Platform: [employer] Location of provider rendering services: practice address Location of patient: address on file Patient Identification confirmed using: Name, : Yes Telehealth method: video Patient verbally consented to treatment: Yes Patient verbally consented to billing insurance company: Yes Patient informed of any privacy concerns related to visit: Yes Minutes spent on Phone/Video with Pt.: 15 Assessment & Plan Assessment & Plan (1) Nocturia more than twice per night: Code(s): R35.1 - Nocturia Category: Medical (2) Overactive bladder: Code(s): N32.81 - Overactive bladder Category: Medical Plan Six-month follow-up office Medications: Changed From trospium administer on an empty stomach 20 mg PO BID 30 days 60 tabs 1RF N32.81 - Overactive bladder To trospium administer on an empty stomach 20 mg PO BID 90 days 180 tabs 1RF N32.81 - Overactive bladder Patient Instructions: Imaging studies, laboratory and physical exam results were discussed and reviewed in detail. No major barriers to patient understanding were identified. An opportunity to ask questions regarding the treatment plan was provided. All questions were answered. The patient expressed understanding and agreement with the above treatment plan. The patient is aware they should contact our office by phone for worsening of their current condition or the appearance of new urologic symptoms. Compliance is encouraged with any medications and followup testing that is ordered. It is a privilege to participate in the urologic care of your patient. If you have any questions or concerns regarding treatment for the above conditions, or other urologic issues, please do not hesitate to contact me. The office telephone contact is [phone]. This note is constructed using voice recognition software. While every effort has been made to ensure accuracy blocker and polisher gold wheel errors may have been included. Yours sincerely, Dr Med Doran MD, [facility] - Urology Providers of Expert, Compassionate Care for the Genitourinary System Coding Level of Care Code Tele Est Pt Level 3 (21621) Diagnoses Nocturia more than twice per night R35.1 Overactive bladder N32.81
== END 2024-08-31 11:54 | disposition home or self-care (01) ==
LOC: HO.HUSH 11:36
PROVIDERS: PCP Nurse Practitioner; Visit Provider Urology
DX: R35.1 Nocturia (principal); N32.81 Overactive bladder
CPT/HCPCS: 99213

== ENCOUNTER 2024-09-29 14:50 | Outpatient (AMB) | payer MEDICARE, SELFPAY ==
--- NOTE | 2024-09-29 14:51 | MHC.OFFVIS ---
Intake Visit Reasons: 2m follow-up Intake Note: Patient is present for 2M F/U Urology Medication:TERAZOSIN,VINEGRON,TROSPIUM,VITAMIN B1 Antibiotic Allergy:NONE Blood Thinner:NONE Powerhouse Mechanic Supervisor Required: No Allergies No Known Allergies Allergy (Verified 09/29/24 14:52) HPI Comments Details: Titus is a pleasant male. He is a patient of Dr. Brand. He seen for the following urologic conditions - lower urinary tract symptoms - postvoid dribbling - overactive bladder Telemedicine Evaluation 15 min Consultation HESKA Terrell Video attempted 6m f/u office PVR Like to stop medication as he thinks is not working Can stop tolterodine Over 76. Switch from oxybutynin to covered beta agonist. 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 Lower urinary tract symptoms Longstanding with weakness of stream, urinary urgency and frequency with nocturia Current therapy combination therapy with terazosin 10 mg, tolterodine 2 mg Prior therapy terazosin 5 mg PSA 04/30 0.6 Cystoscopy 05/3121 grade 2 trabeculation with enlarged capacity - 02/0124 grade 2 trabeculation with small diverticula Symptoms consistent with combination overactive bladder and stiff prostate [facility] Medical History Asthma Bipolar 1 disorder Chronic obstructive lung disease Atrial fibrillation Angina pectoris BPH (benign prostatic hyperplasia) Review of Systems Const All systems reviewed & are unremarkable except as noted in HPI and below Reports no additional complaints Resp Reports no additional complaints GI Reports no additional complaints Reports as per HPI Musc Reports no additional complaints Physical Exam Telemedicine evaluation Appropriate responses Regular breathing rate and rhythm HEENT Head: Yes normal to inspection Ears: hearing grossly normal bilaterally Eyes General: appearance normal, both eyes and all related structures Neck Neck: Yes normal visual inspection Chest Chest palpation & inspection: normal inspection of the chest Resp Effort & Inspection: normal respiratory effort and able to speak in complete sentences Telehealth Telehealth Location of provider rendering services: practice address Location of patient: address on file Patient Identification confirmed using: Name, : Yes Telehealth method: voice only Patient verbally consented to treatment: Yes Patient verbally consented to billing insurance company: Yes Patient informed of any privacy concerns related to visit: Yes Assessment & Plan Assessment & Plan (1) Weak urinary stream: Code(s): R39.12 - Poor urinary stream Category: Medical (2) BPH (benign prostatic hyperplasia): Code(s): N40.0 - Benign prostatic hyperplasia without lower urinary tract symptoms Category: Medical (3) Nocturia more than twice per night: Code(s): R35.1 - Nocturia Category: Medical Plan Six-month follow-up Medications: Refilled terazosin 10 mg PO BEDTIME 90 caps 1RF 90 days N40.0 - Benign prostatic hyperplasia without lower urinary tract symptoms Discontinued trospium administer on an empty stomach Discontinued Reason: Patient Completed Course 20 mg PO BID 90 days 180 tabs 1RF N32.81 - Overactive bladder Patient Instructions: Imaging studies, laboratory and physical exam results were discussed and reviewed in detail. No major barriers to patient understanding were identified. An opportunity to ask questions regarding the treatment plan was provided. All questions were answered. The patient expressed understanding and agreement with the above treatment plan. The patient is aware they should contact our office by phone for worsening of their current condition or the appearance of new urologic symptoms. Compliance is encouraged with any medications and followup testing that is ordered. It is a privilege to participate in the urologic care of your patient. If you have any questions or concerns regarding treatment for the above conditions, or other urologic issues, please do not hesitate to contact me. The office telephone contact is [phone]. This note is constructed using voice recognition software. While every effort has been made to ensure accuracy actuary manager errors may have been included. Yours sincerely, Dr Med Doran MD, [facility] - Urology Providers of Expert, Compassionate Care for the Genitourinary System Coding Level of Care Code Tele Est Pt Level 3 (66263) Diagnoses Weak urinary stream R39.12 BPH (benign prostatic hyperplasia) N40.0 Nocturia more than twice per night R35.1
== END 2024-09-29 15:48 | disposition home or self-care (01) ==
LOC: HO.HUSH 14:50
PROVIDERS: PCP Nurse Practitioner; Visit Provider Urology
DX: R39.12 Poor urinary stream (principal); N40.0 Benign prostatic hyperplasia without lower urinary tract symptoms; R35.1 Nocturia
CPT/HCPCS: 99442

== ENCOUNTER 2025-03-01 10:26 | Outpatient (AMB) | payer MEDICARE, SELFPAY ==
--- NOTE | 2025-03-01 10:33 | A.OFFVIS_ITS ---
Intake Visit Reasons: 6m follow up Intake Note: Patient is present for 6M F/U Urology Medication:TERAZOSIN,VIBERGRON,VITAMIN B1 Antibiotic Allergy:NONE Blood Thinner:NONE Surface Hydrologist Required: No Allergies No Known Allergies Allergy (Verified 03/01/25 10:37) HPI Comments Details: Titus is a pleasant male. He is a patient of Dr. Brand. He seen for the following urologic conditions - lower urinary tract symptoms - postvoid dribbling - overactive bladder Six-month follow-up Overactive bladder UA normal Current medications include terazosin 10 mg Only having occasional accidents Happy with current situation Remain on alpha-danelle Over 76. Switch from oxybutynin to covered beta agonist. 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 Lower urinary tract symptoms Longstanding with weakness of stream, urinary urgency and frequency with nocturia Current therapy combination therapy with terazosin 10 mg Prior therapy terazosin 5 mg PSA 04/30 0.6 Cystoscopy 05/3121 grade 2 trabeculation with enlarged capacity - 02/0124 grade 2 trabeculation with small diverticula Symptoms consistent with combination overactive bladder and stiff prostate PFSH Medical History Asthma Bipolar 1 disorder Chronic obstructive lung disease Atrial fibrillation Angina pectoris BPH (benign prostatic hyperplasia) Review of Systems Const Denies chills and Denies fever(s) Card Reports no additional complaints and Denies syncope Resp Denies cough GI Denies abdominal pain and Denies heartburn Reports as per HPI and Denies change in libido Neuro Denies syncope Psych Denies change in libido Endo Denies change in libido Physical Exam Const General: cooperative, healthy appearing, comfortable and no acute distress Orientation/consciousness: patient oriented x3 HEENT Face and sinus: Yes normal facial exam Mouth: moist mucous membranes Neck Neck: Yes normal visual inspection, Yes full ROM and Yes trachea midline Chest Chest palpation & inspection: normal inspection of the chest Resp Effort & Inspection: normal respiratory effort, able to speak in complete sentences and no respiratory distress GI Inspection: Yes normal to inspection Back/Spine/Pelvis Cervical Spine: normal cervical lordosis Thoracic/Lumbar Spine: thoracic and lumbar spine normal to inspection Skin General skin exam: no rashes or lesions noted Neuro General: patient oriented x3, gait normal, tone normal and moves all extremities Extrem General: Yes normal to inspection and Yes capillary refill normal Assessment & Plan Assessment & Plan (1) Nocturia more than twice per night: Code(s): R35.1 - Nocturia Category: Medical (2) Benign prostatic hyperplasia (BPH) with post-void dribbling: Code(s): N40.1 - Benign prostatic hyperplasia with lower urinary tract symptoms; N39.43 - Post-void dribbling Category: Medical Plan Continue terazosin Six-month follow-up UA Medications: Refilled terazosin 10 mg PO BEDTIME 90 days 90 caps 1RF N40.0 - Benign prostatic hyperplasia without lower urinary tract symptoms Discontinued vibegron Take daily Discontinued Reason: Patient Completed Course 75 mg PO DAILY 30 days 30 tabs 1RF N32.81 - Overactive bladder Patient Instructions: This note is constructed using voice recognition software. While every effort has been made to ensure accuracy manager corporate strategy errors may have been included. Imaging studies, laboratory and physical exam results were discussed and review ed in detail. No major barriers to patient understanding were identified. An opportunity to ask questions regarding the treatment plan was provided. All questions were answered. The patient expressed understanding and agreement with the above treatment plan. The patient is aware they should contact our office by phone for worsening of their current condition or the appearance of new urologic symptoms. Compliance is encouraged with any medications and followup testing that is ordered. It is a privilege to participate in the urologic care of your patient. If you have any questions or concerns regarding treatment for the above conditions, or other urologic issues, please do not hesitate to contact me. The office telephone contact is [phone]. Sincerely, Dr Med Doran MD, [facility] - Urology Compassionate Specialist Care for the Genitourinary System Coding Level of Care Code Est Pt Level 3 (37121) Complex EM visit Add On G2211 Diagnoses Nocturia more than twice per night R35.1 Benign prostatic hyperplasia (BPH) with post-void dribbling N40.1; N39.43
== END 2025-03-01 11:12 | disposition home or self-care (01) ==
LOC: HO.HUSH 10:27
PROVIDERS: PCP Nurse Practitioner; Visit Provider Urology
DX: N40.1 Benign prostatic hyperplasia with lower urinary tract symptoms (principal); R35.1 Nocturia; N39.43 Post-void dribbling; Z13.9 Encounter for screening, unspecified
CPT/HCPCS: 99213; G2211

== ENCOUNTER → 2025-03-01 10:26 | Outpatient (BNVA) | payer MEDICARE, SELFPAY | PROVIDERS: PCP Nurse Practitioner; Visit Provider Urology | DX: N40.1 Benign prostatic hyperplasia with lower urinary tract symptoms (principal); R35.1 Nocturia; N39.43 Post-void dribbling | CPT/HCPCS: 81003; 99212 ==

== ENCOUNTER 2025-08-30 09:47 | Outpatient (REF) | payer MEDICARE, SELFPAY ==
--- OUTSIDE RECORDS SUMMARY | 2025-08-30 20:18 | XMS_ITS | Encounter Summary ---
Author Organization [facility] Address [address] [place] [address] Phone Care Team Providers Care Welder Fitter Arc Name Role Phone Natasha Brand RAIL SPECIALIST Unavailable [phone] Scott Finley MD Primary Care Provider [phone] Scott Finley MD Primary Care Provider [phone] Encounter Details Date Type Department Care Team (Late st Contact Info) Description 03/22/2024 Transcribe Orders Virtual Department [address] [place] [address] Natasha Brand NP [address] [place] [address] [email or web address] Social History Tobacco Use Types Packs/Day Years Used Date Smoking Tobacco: Never Smokeless Tobacco: Never Alcohol Use Standard Drinks/Week Comments No 0 (1 standard drink = 0.6 oz pur e alcohol) sober since 1987 Education Answer Date Recorded Are you interested in more education? Not on [place] e 02/05/2023 Are you concerned about learning? Not on file 02/05/2023 No 02/05/2023 No 02/05/2023 Digital Access Answer Date Recorded No 03/08/2023 No 03/08/2023 Reliable internet access at home? Not on file 03/08/2023 Device with a working camera? Not on file Sex and Gender Information Value Date Recorded Sex Assigned at Male 12/19/2017 7:28 AM EDT Legal Sex Male 10:08 PM EDT Gender Identity Male 12/19/2017 7:28 AM EDT Sexual Orientation Straight 12/19/2017 7: 28 AM EDT documented as of this encounter Plan of Treatment Upcoming Encounters Date Type Department Care Team (Late st Contact Info) Description 10/05/2025 1:00 PM EST Office Visit [facility] [address] [place] [address] [address]rd Floor, [address] [place] [address] Rigoberto Doss MD [address] [place] [id number] [email or web address] documented as of this encounter Visit Diagnoses Not on filedocumented in this encounter Care Teams Welder Fitter Arc Relationship Specialty Start Date End Date Scott Finley MD [address] [place] [address] PCP - General Internal Medicine 03/28/18 04/20/24 Scott Finley MD [address] [place] [address] PCP - General Internal Medicine 04/21/24 Natasha Brand NP [address] [place] [address] [email or web address] Historical LMR Provider 08/01/17 documented as of this encounter Additional Source Comments The information contained in this document represents components of the legal health record. It is not the complete legal health record.[facility]
--- OUTSIDE RECORDS SUMMARY | 2025-08-30 20:18 | XMS_ITS | Encounter Summary ---
Author Organization [facility] Address [address] [place] [address] Phone Care Team Providers Care Cash Applications Specialist Name Role Phone Natasha Brand NP Unavailable [phone] Scott Finley MD Primary Care Provider [phone] Scott Finley MD Primary Care Provider [phone] Encounter Details Date Type Department Care Team (Late st Contact Info) Description 03/21/2024 Procedure Pass [facility] [address] [place] [address] Social History Tobacco Use Types Packs/Day Years [...] Description 10/05/2025 1:00 PM EST Office Visit [facility] [address] Floor, [address] [place] [address] Rigoberto Doss MD [address] [place] [address] documented as of this encounter Visit Diagnoses Not on filedocumented in this encounter Care Teams Cash Applications Specialist Relationship Specialty Start Date End Date Scott Finley MD [address] [place] [address] PCP - General Internal Medicine 03/28/18 04/20/24 Scott Finley MD [address] [place] [address] PCP - General Internal Medicine 04/21/24 Natasha Brand NP [address] [place] [address] Historical LMR Provider 08/01/17 documented as of this encounter Additional Source Comments The information contained in this document represents components of the legal health record. It is not the complete legal health record.[facility]
--- OUTSIDE RECORDS SUMMARY | 2025-08-30 20:18 | XMS_ITS | Encounter Summary ---
Author Organization [facility] Address [address] [place] [address] Phone Care Team Providers Care Supervisor Accounts Receivable Name Role Phone Natasha Brand NP Unavailable [phone] Scott Finley MD Primary Care Provider [phone] Scott Finley MD Primary Care Provider [phone] Encounter Details Date Type Department Care Team (Late st Contact Info) Description 12/25/2021 Procedure Pass [facility], [facility] Scan - [address] [address] Social History Tobacco Use Types Packs/Day Years Used Date Smoking Tobacco: Never Smokeless Tobacco: Never Alcohol Use Standard Drinks/Week Comments No 0 (1 standard drink = 0.6 oz pur e alcohol) Sex and Gender Information Value Date Recorded Sex Assigned at Male 12/19/2017 7:28 AM EDT Legal Sex Male 10:08 PM EDT Gender Identity Male 12/19/2017 7:28 AM EDT Sexual Orientation Straight 12/19/2017 7: 28 AM EDT documented as of this encounter Functional Status * Calculated C-SSRS Risk Score (Lifetime/Recent) Answer Date of Assessment Author No Risk Indicated 12/25/2021 10:00 AM EDT Enriqueta Orlando RN * [place] Suicide Severity Rating Scale (Screener/Recent Self-Report) Question Answer Date of Assessment Author 1. Wish to be (Past 1 Month) No 022 10:00 AM EDT Enriqueta Maxwell RN 2. Non-Specific Active Suici rell Thoughts (Past 1 Month) No 12/25/2021 10:00 AM EDT Ludy Maxwell RN 6. Suicidal Behavior (Lifetime) No 10:00 AM EDT Enriqueta Maxwell RN documented as of this encounter Plan of Treatment Upcoming Encounters Date Type Department Care Team (Late st Contact Info) Description 10/05/2025 1:00 PM EST Office Visit [facility] [address] [place] [address] [address]rd Floor, [address] [place] [address] Rigoberto Doss MD [address] [place] [phone] [email or web address] documented as of this encounter Visit Diagnoses Not on filedocumented in this encounter Care Teams Supervisor Accounts Receivable Relationship Specialty Start Date End Date Scott Finley MD [address] [place] [address] [email or web address] PCP - General Internal Medicine 03/28/18 04/20/24 Scott Finley MD [address] [place] [address] [email or web address] PCP - General Internal Medicine 04/21/24 Natasha Brand NP [address] [place] [address] [email or web address] Historical LMR Provider 08/01/17 documented as of this encounter Additional Source Comments The information contained in this document represents components of the legal health record. It is not the complete legal health record.[facility]
--- OUTSIDE RECORDS SUMMARY | 2025-08-30 20:18 | XMS_ITS | Encounter Summary ---
Author Organization [facility] Address [address] [facility] [address] [place] [address] Phone Care Team Providers Care Yacht Captain Name Role Phone Natasha Brand NP Unavailable [phone] Scott Finley MD Primary Care Provider [phone] Scott Finley MD Primary Care Provider [phone] Encounter Details Date Type Department Care Team (Late st Contact Info) Description 08/19/2023 Procedure Pass [facility] Endoscopy Admitting Dept Virtual Department 30 [place] [address] Social History Tobacco Use Types Packs/Day Years [...] Description 10/05/2025 1:00 PM EST Office [facility] 3rd Floor, [address] [place] [address] Rigoberto Doss MD [address] [place] [address] [email or web address] documented as of this encounter Visit Diagnoses Not on filedocumented in this encounter Care Teams Yacht Captain Relationship Specialty Start Date End Date Scott Finley MD [address] [place] [address] [email or web address] PCP - General Internal Medicine 03/28/18 04/20/24 Scott Finley MD [address] [place] [address] [email or web address] PCP - General Internal Medicine 04/21/24 Natasha Brand NP [address] [place] [address] [email or web address] Historical LMR Provider 08/01/17 documented as of this encounter Additional Source Comments The information contained in this document represents components of the legal health record. It is not the complete legal health record.[facility]
--- OUTSIDE RECORDS SUMMARY | 2025-08-30 20:18 | XMS_ITS | Encounter Summary ---
Author Organization [facility] Address [address] [facility] [address] [place] [address] Phone Care Team Providers Care Churn Operator Name Role Phone Natasha Brand NP Unavailable [phone] Jerry Singh MD Unavailable [phone] Scott Finley MD Primary Care Provider + Scott Finley MD Primary Care Provider + Encounter Details Date Type Department Care Team (Late st Contact Info) Description 10/07/2020 Procedure Pass [facility], [address] [address] Social History Tobacco Use Types Packs/Day Years [...] Description 10/05/2025 1:00 PM EST Office Visit [facility] [address] [place] [address] 3rd Floor, [address] [place] [address] Rigoberto Doss MD [address] [place] [address] documented as of this encounter Visit Diagnoses Not on filedocumented in this encounter Care Teams Churn Operator Relationship Specialty Start Date End Date Scott Finley MD [address] [place] [address] [email or web address] PCP - General Internal Medicine 03/28/18 04/20/24 Scott Finley MD [address] [place] [address] [email or web address] PCP - General Internal Medicine 04/21/24 Natasha Brand NP [address] [place] [address] [email or web address] [email or web address] Provider 08/01/17 Jerry Singh MD [address] [place] [address] [email or web address] Historical LMR Provider 08/01/17 10/18/21 documented as of this encounter Additional Source Comments The information contained in this document represents components of the legal health record. It is not the complete legal health record.[facility]
--- OUTSIDE RECORDS SUMMARY | 2025-08-30 20:18 | XMS_ITS | Encounter Summary ---
Author Organization [facility] Address [address] [facility] [address] [place] [address] Phone Care Team Providers Care Press Clipper Name Role Phone Natasha Brand NP Unavailable [phone] Scott Finley MD Primary Care Provider [phone] Scott Finley MD Primary Care Provider [phone] Encounter Details Date Type Department Care Team (Late st Contact Info) Description 06/21/2023 Procedure Pass [facility] Endoscopy Admitting Dept Virtual Department 30 [place] [address] Social History Tobacco Use Types Packs/Day Years Used Date Smoking Tobacco: Never Smokeless Tobacco: Never Alcohol Use Standard Drinks/Week Comments No 0 (1 standard drink = 0.6 oz pur e alcohol) Education Answer Date Recorded Are you interested [...] Description 10/05/2025 1:00 PM EST Office Visit [facility] [address] 3rd Floor, [address] [place] [address] Rigoberto Doss MD [address] [place] [address] documented as of this encounter Visit Diagnoses Not on filedocumented in this encounter Care Teams Press Clipper Relationship Specialty Start Date End Date Scott Finley MD [address] [place] [address] [email or web address] PCP - General Internal Medicine 03/28/18 04/20/24 Scott Finley MD 238 [place] [address] PCP - General Internal Medicine 04/21/24 Natasha Brand NP [address] [place] [address] [email or web address] Historical LMR Provider 08/01/17 documented as of this encounter Additional Source Comments The information contained in this document represents components of the legal health record. It is not the complete legal health record.[facility]
--- OUTSIDE RECORDS SUMMARY | 2025-08-30 20:18 | XMS_ITS | Encounter Summary ---
Author Organization [facility] Address [address] [facility] [address] [place] [address] Phone Care Team Providers Care Nurse Auditor Name Role Phone Natasha Brand NP Unavailable [phone] Jerry Singh MD Unavailable [phone] Natasha Brand NP Primary Care Provider [phone] Scott Finley MD Primary Care Provider + Scott Finley MD Primary Care Provider + Encounter Details Date Type Department Care Team (Late st Contact Info) Description 12/01/2017 Procedure Pass [facility], [address] [address] Social History Tobacco Use Types Packs/Day Years Used Date Smoking Tobacco: Never Assessed Sex and Gender Information Value Date Recorded Sex Assigned at Male 12/19/2017 7:28 AM EDT Legal Sex Male 10:08 PM EDT Gender Identity Male 12/19/2017 7:28 AM EDT Sexual Orientation Straight 12/19/2017 7: 28 AM EDT documented as of this encounter Plan of Treatment Upcoming Encounters Date Type Department Care Team (Late st Contact Info) Description 10/05/2025 1:00 PM EST Office [facility] 3[facility], [address] [place] [address] Rigoberto Doss MD 50 [place] [address] documented as of this encounter Visit Diagnoses Not on filedocumented in this encounter Additional Health Concerns Infection Onset Date Last Indicated Resolved Time CoV-Risk 04/03/2020 04/04/2020 04/17/2020 1:23 AM EDT documented as of this encounter Care Teams Nurse Auditor Relationship Specialty Start Date End Date Natasha Brand NP [address] [place] [address] [email or web address] PCP - General 10/14/17 03/27/18 Scott Finley MD [address] [place] [address] [email or web address] PCP - General Internal Medicine 03/28/18 04/20/24 Scott Finley MD [address] [place] [address] [email or web address] PCP - General Internal Medicine 04/21/24 Natasha Brand NP [address] [place] [address] [email or web address] Historical LMR Provider 08/01/17 Jerry Singh MD [address] [place] [address] [email or web address] Historical LMR Provider 08/01/17 10/18/21 documented as of this encounter Additional Source Comments The information contained in this document represents components of the legal health record. It is not the complete legal health record.[facility]
--- OUTSIDE RECORDS SUMMARY | 2025-08-30 20:18 | XMS_ITS | Encounter Summary ---
Author Organization [facility] Address [address] [facility] [address] [place] [address] Phone Care Team Providers Care It Desktop Support Technician Name Role Phone Natasha Brand TIME CLOCK REPAIRER Unavailable [phone] Scott Finley MD Primary Care Provider [phone] Scott Finley MD Primary Care Provider [phone] Encounter Details Date Type Department Care Team (Latest Contact Info) Description 09/28/2023 Transcribe Orders [facility] [address] [address] Chelsea Hairston NP 10 [place] [address] Diarrhea, unspecified type (Primary Dx); Personal history of colonic polyps Social History Tobacco Use Types Packs/Day Years [...] Description 10/05/2025 1:00 PM EST Office Visit [facility] 3[facility], [address] [place] [address] Rigoberto Doss MD [address] [place] [address] [email or web address] documented as of this encounter Results * Vitamin B12 (09/28/2023 11:44 AM EST) VITAMIN B12 657 232 - 1,245 pg/mL [facility] Blood 09/28/2023 11:4 4 AM EST 09/28/2023 11:58 AM EST Chelsea Hairston TIME CLOCK REPAIRER LAB BLOOD BKR ORDERABLES Final Result Performing Organization Address City/State/RUST [employer] de Phone Number [facility] [address] [place] [address] documented in this encounter Visit Diagnoses Diagnosis Diarrhea, unspecified type- Primary Personal history of colonic polyps documented in this encounter Care Teams It Desktop Support Technician Relationship Specialty Start Date End Date Scott Finley MD [address] [place] [address] PCP - General Internal Medicine 03/28/18 04/20/24 Scott Finley MD 238 [place] [address] PCP - General Internal Medicine 04/21/24 Natasha Brand NP [address] [place] [address] [email or web address] Historical LMR Provider 08/01/17 documented as of this encounter Additional Source Comments The information contained in this document represents components of the legal health record. It is not the complete legal health record.[facility]
--- OUTSIDE RECORDS SUMMARY | 2025-08-30 20:18 | XMS_ITS | Encounter Summary ---
Author Organization [facility] Address [address] [facility] [address] [place] [address] Phone Care Team Providers Care Database Programmer Analyst Name Role Phone Natasah Brand NP Unavailable [phone] Jerry Singh MD Unavailable [phone] Scott Finley MD Primary Care Provider [phone] Scott Finley MD Primary Care Provider [phone] Encounter Details Date Type Department Care Team (Late st Contact Info) Description 12/23/2020 Ancillary Orders [facility] Orthopedics & Sports Medicine [address] [place] [address] Tom Magdaleno MD [address] [place] [address] [email or web address] Social History Tobacco Use Types Packs/Day Years [...] Description 10/05/2025 1:00 PM EST Office Visit [facility] [address] [place] [address] 3rd Floor, [address] [place] [address] Rigoberto Doss MD [address] [place] [address] documented as of this encounter Visit Diagnoses Not on filedocumented in this encounter Care Teams Database Programmer Analyst Relationship Specialty Start Date End Date Scott Finley MD [address] [place] [address] PCP - General Internal Medicine 03/28/18 04/20/24 Scott Finley MD [address] [place] [address] [email or web address] PCP - General Internal Medicine 04/21/24 Natasha Brand NP [address] [place] [address] [email or web address] Historical LMR Provider 08/01/17 Jerry Singh MD [address] [place] [address] Historical LMR Provider 08/01/17 10/18/21 documented as of this encounter Additional Source Comments The information contained in this document represents components of the legal health record. It is not the complete legal health record.[facility]
--- OUTSIDE RECORDS SUMMARY | 2025-08-30 20:18 | XMS_ITS | Encounter Summary ---
Author Organization [facility] Address [address] [facility] [address] [place] [address] Phone Care Team Providers Care Overlock Collar Setter Name Role Phone Natasha Brand NP Unavailable [phone] Scott Finley MD Primary Care Provider [phone] Scott Finley MD Primary Care Provider [phone] Encounter Details Date Type Department Care Team (Late st Contact Info) Description 10/02/2022 Ancillary Orders [facility] Orthopedics & Sports Medicine [address] [place] [address] Babs Mars MD [address] [place] [address] Orthopedics & Sports Medicine, [facility] [place] [address] [email or web address] Social History Tobacco Use Types Packs/Day Years [...] Description 10/05/2025 1:00 PM EST Office Visit [facility] [address] [place] [address] 3rd Floor, [address] [place], [place] [phone] Rigoberto Doss MD [address] [place] [address] [email or web address] documented as of this encounter Visit Diagnoses Not on filedocumented in this encounter Care Teams Overlock Collar Setter Relationship Specialty Start Date End Date Scott Finley MD [address] [place] [address] [email or web address] PCP - General Internal Medicine 03/28/18 04/20/24 Scott Finley MD 238 [place] [address] [email or web address] PCP - General Internal Medicine 04/21/24 Natasha Brand NP [address] [place] [address] [email or web address] Historical LMR Provider 08/01/17 documented as of this encounter Additional Source Comments The information contained in this document represents components of the legal health record. It is not the complete legal health record.[facility]
--- OUTSIDE RECORDS SUMMARY | 2025-08-30 20:18 | XMS_ITS | Encounter Summary ---
Author Organization [facility] Address [address] [facility] [address] [place] [address] Phone Care Team Providers Care Flagstone Layer Name Role Phone Natasha Brand NP Unavailable [phone] Scott Finley MD Primary Care Provider + Scott Finley MD Primary Care Provider + Encounter Details Date Type Department Care Team (Late st Contact Info) Description 12/28/2021 Procedure Pass [facility], [facility] 30 [place] [address] Social History Tobacco Use Types Packs/Day Years [...] Description 10/05/2025 1:00 PM EST Office Visit [facility] [address] [facility] 3rd Floor, [address] [place] [address] Rigoberto Doss MD 50 [place] [address] documented as of this encounter Visit Diagnoses Not on filedocumented in this encounter Care Teams Flagstone Layer Relationship Specialty Start Date End Date Scott Finley MD [address] [place] [address] [email or web address] PCP - General Internal Medicine 03/28/18 04/20/24 Scott Finley MD [address] [place] [address] [email or web address] PCP - General Internal Medicine 04/21/24 Natasha Brand NP [address] [place] [address] [email or web address] Historical LMR Provider 08/01/17 documented as of this encounter Additional Source Comments The information contained in this document represents components of the legal health record. It is not the complete legal health record.[facility]
--- OUTSIDE RECORDS SUMMARY | 2025-08-30 20:18 | XMS_ITS | Encounter Summary ---
Author Organization [facility] Address [address] [facility] [address] [place] [address] Phone Care Team Providers Care Mover Name Role Phone Natasha Brand NP Unavailable [phone] Jerry Singh MD Unavailable [phone] Natasha Brand NP Primary Care Provider [phone] Scott Finley MD Primary Care Provider + Scott Finley MD Primary Care Provider + Encounter Details Date Type Department Care Team (Late st Contact Info) Description 12/01/2017 Procedure Pass [facility], [address] [address] Social History Tobacco Use Types Packs/Day Years [...] Description 10/05/2025 1:00 PM EST Office Visit [facility] 3[address], [address] [place] [address] Rigoberto Doss MD 50 [place] [address] documented as of this encounter Visit Diagnoses Not on filedocumented in this encounter Additional Health Concerns Infection Onset Date Last Indicated Resolved Time CoV-Risk 04/03/2020 04/04/2020 04/17/2020 1:23 AM EDT documented as of this encounter Care Teams Mover Relationship Specialty Start Date End Date Natasha Brand NP [address] [place] [address] [email or web address] PCP - General 10/14/17 03/27/18 Scott Finley MD [address] [place] [address] [email or web address] PCP - General Internal Medicine 03/28/18 04/20/24 Scott Finley MD [address] [place] [address] [email or web address] PCP - General Internal Medicine 04/21/24 Natasha Brand NP [address] [place] [address] [email or web address] Historical LMR Provider 08/01/17 Jerry Singh MD [address] [place] [address] [email or web address] Historical LMR Provider 08/01/17 10/18/21 documented as of this encounter Additional Source Comments The information contained in this document represents components of the legal health record. It is not the complete legal health record.[facility]
--- OUTSIDE RECORDS SUMMARY | 2025-08-30 20:18 | XMS_ITS | Encounter Summary ---
Author Organization [facility] Address [address] [facility] [address] [place] [address] Phone Care Team Providers Care Technical Sales Specialist Name Role Phone Natasha Brand NP Unavailable [phone] Jerry Singh MD Unavailable [phone] Scott Finley MD Primary Care Provider + Scott Finley MD Primary Care Provider + Encounter Details Date Type Department Care Team (Late st Contact Info) Description 11/29/2020 Procedure Pass [facility], [address] [address] Social History Tobacco Use Types Packs/Day Years [...] Description 10/05/2025 1:00 PM EST Office Visit [facility] [address] [place] [address] 3rd Floor, [address] [place] [address] Rigoberto Doss MD 50 [place] [address] documented as of this encounter Visit Diagnoses Not on filedocumented in this encounter Care Teams Technical Sales Specialist Relationship Specialty Start Date End Date Scott Finley MD [address] [place] [address] [email or web address] PCP - General Internal Medicine 03/28/18 04/20/24 Scott Finley MD [address] [place] [address] PCP - General Internal Medicine 04/21/24 Natasha Brand NP [address] [place] [address] [email or web address] Historical LMR Provider 08/01/17 Jerry Singh MD [address] [place] [address] [email or web address] Historical LMR Provider 08/01/17 10/18/21 documented as of this encounter Additional Source Comments The information contained in this document represents components of the legal health record. It is not the complete legal health record.[facility]
--- OUTSIDE RECORDS SUMMARY | 2025-08-30 20:18 | XMS_ITS | Encounter Summary ---
Author Organization [facility] Address [address] [facility] [address] [place] [address] Phone Care Team Providers Care Appraiser Auditor Name Role Phone Natasha Brand NP Unavailable [phone] Jerry Singh MD Unavailable [phone] Natasha Brand NP Primary Care Provider [phone] Cely Finley MD Primary Care Provider +- Cely Finley MD Primary Care Provider [phone] Encounter Details Date Type Department Care Team (Late st Contact Info) Description 12/01/2017 Ancillary Orders [facility], [address] [address] Radha Arias NP [address] [place] [phone] [email or web address] Social History Tobacco Use Types Packs/Day Years [...] Description 10/05/2025 1:00 PM EST Office Visit [facility] [address] [place] [address] 3rd Floor, [address] [place], [place] [phone] Rigoberto Doss MD [address] [place] [address] [email or web address] documented as of this encounter Results * XR HIP 2 VW RIGHT PLUS PELVIS (12/01/2017 10:53 AM EST) Anatomical Region Laterality Modality Hip Right Radiographic Luisa ging 12/01/2017 11:2 4 AM EST Impressions 12/01/2017 11:26 AM EST 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 No specific radiographic findings of avascular necrosis. Mild sclerosis of the pubic symphysis could be correlated with any clinical findings of osteitis pubis. POS [id number] Narrative 12/01/2017 11:26 AM EST COMPARISON: None FINDINGS: An AP view of the pelvis and AP neutral and frog-lateral views of the right hip were obtained. No fracture, subluxation, or other acute bony abnormalities are identified. There is narrowing of the hip joints bilaterally with moderate periacetabular spurring present. There is cortical thickening at the level of the ventral right femoral head/neck junction. Femoral head articular surface is relatively smooth. No aberrant soft tissue calcifications of significance are identified. There is mild non-specific sclerosis of the pubic symphysis. Sclerosis is also evident along the margins of the sacroiliac joints. Procedure Note Cely Spicer MD - 12/01/2017 COMPARISON: None FINDINGS: An AP view of the pelvis and AP neutral and frog-lateral views of theright hip were obtained. No fracture, subluxation, or other acute bonyabnormalities are identified. There is narrowing of the hip jointsbilaterally with moderate periacetabular spurring present. There iscortical thickening at the level of the ventral right femoral head/neckjunction. Femoral head articular surface is relatively smooth. Noaberrant soft tissue calcifications of significance are identified. Thereis mild non- specific sclerosis of the pubic symphysis. Sclerosis is alsoevident along the margins of the sacroiliac joints. 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 No specific radiographicfindings of avascular necrosis. Mild sclerosis of the pubic symphysiscould be correlated with any clinical findings of osteitis pubis. POS [id number] Radha Zimmer Juana KYLE IMG XR PELVIS Final Result documented in this encounter Visit Diagnoses Diagnosis Pain Generalized pain Pain Generalized pain documented in this encounter Additional Health Concerns Infection Onset Date Last Indicated Resolved Time CoV-Risk 04/03/2020 04/04/2020 04/17/2020 1:23 AM EDT documented as of this encounter Care Teams Appraiser Auditor Relationship Specialty Start Date End Date Natasha Brand NP [address] [place] [address] [email or web address] PCP - General 10/14/17 03/27/18 Cely Finley MD [address] [place] [address] [email or web address] PCP - General Internal Medicine 03/28/18 04/20/24 Cely Finley MD [address] [place] [address] PCP - General Internal Medicine 04/21/24 Natasha Brand NP [address] [place] [address] [email or web address] Historical LMR Provider 08/01/17 Jerry Singh MD [address] [place] [address] [email or web address] Historical LMR Provider 08/01/17 10/18/21 documented as of this encounter Additional Source Comments The information contained in this document represents components of the legal health record. It is not the complete legal health record.[facility]
--- OUTSIDE RECORDS SUMMARY | 2025-08-30 20:18 | XMS_ITS | Encounter Summary ---
Author Organization [facility] Address [address] [facility] [address] [facility] [address] [place] [address] Phone Care Team Providers Care Hand Woven Carpet And Rug Mender Name Role Phone Natasha Brand NP Unavailable [phone] Jerry Singh MD Unavailable [phone] Natasha Brand NP Primary Care Provider [phone] Cely Finley MD Primary Care Provider [phone] Cely Finley MD Primary Care Provider [phone] Encounter Details Date Type Department Care Team (Late st Contact Info) Description 12/01/2017 Ancillary Orders [facility], [address] [address] Radha Arias NP [address] [place] [address] [phone] [email or web address] Social History Tobacco Use Types Packs/Day [...] Description 10/05/2025 1:00 PM EST Office Visit [facility] [address] [place] [address] 3rd Floor, [address] [place], [place] [phone] Rigoberto Doss MD [address] [place] [address] [email or web address] documented as of this encounter Results * XR KNEE 3 VIEW (RIGHT) (12/01/2017 10:54 AM EST) Anatomical Region Laterality Modality Knee Right Radiographic Luisa ging 12/01/2017 11:2 6 AM EST Impressions 12/01/2017 11:28 AM EST Chronic osteoarthritis without acute bony abnormality apparent. POS [id number] Narrative 12/01/2017 11:28 AM EST COMPARISON: 07/21/2017 FINDINGS: Frontal, lateral, and specialized patellar views only were obtained as per request revealing no fracture, subluxation, or other acute bony abnormality. Mild to moderate osteoarthritic changes are present in the medial and patellofemoral compartments. Mild periarticular spurring. No gross suprapatellar effusion demonstrated. Procedure Note Cely Spicer MD - 12/01/2017 COMPARISON: 07/21/2017 FINDINGS: Frontal, lateral, and specialized patellar views only were obtained asper request revealing no fracture, subluxation, or other acute bonyabnormality. Mild to moderate osteoarthritic changes are present in themedial and patellofemoral compartments. Mild periarticular spurring. Nogross suprapatellar effusion demonstrated. IMPRESSION: Chronic osteoarthritis without acute bony abnormality apparent. POS [id number] us Radha Arias SKIVING MACHINE OPERATOR IMG XR LOWER EXTREMITY Final Res ult documented in this encounter Visit Diagnoses Diagnosis Pain Generalized pain Pain Generalized pain documented in this encounter Additional Health Concerns Infection Onset Date Last Indicated Resolved Time CoV-Risk 04/03/2020 04/04/2020 04/17/2020 1:23 AM EDT documented as of this encounter Care Teams Hand Woven Carpet And Rug Mender Relationship Specialty Start Date End Date Natasha Barnd NP [address] [place] [address] [email or web address] PCP - General 10/14/17 03/27/18 Cely Finley MD [address] [place] [address] [email or web address] PCP - General Internal Medicine 03/28/18 04/20/24 Cely Finley MD [address] [place] [address] PCP - General Internal Medicine 04/21/24 Natasha Brand NP [address] [place] [address] [email or web address] Historical LMR Provider 08/01/17 Jerry Singh MD [address] [place] [address] [email or web address] Historical LMR Provider 08/01/17 10/18/21 documented as of this encounter Additional Source Comments The information contained in this document represents components of the legal health record. It is not the complete legal health record.[facility]
--- OUTSIDE RECORDS SUMMARY | 2025-08-30 20:18 | XMS_ITS | Encounter Summary ---
Author Organization [facility] Address [address] [facility] [address] [place] [address] Phone Care Team Providers Care Geospatial Systems Integrator Name Role Phone Natasha Brand NP Unavailable [phone] Jerry Singh MD Unavailable [phone] Natasha Brand NP Primary Care Provider [phone] Scott Finley MD Primary Care Provider [phone] Scott Finley MD Primary Care Provider [phone] Encounter Details Date Type Department Care Team (Latest Contact Info) Description 12/01/2017 Transcribe Orders [facility] [address] [place], [place] [phone] Radha Arias, CHIP SEPARATOR [address] [place] [phone] [email or web address] Urgency of urination (Primary Dx) Social History Tobacco Use Types Packs/Day Years [...] Description 10/05/2025 1:00 PM EST Office Visit [facility] [address] [place] [address] 3rd Floor, [address] [place], [place] [phone] Rigoberto Doss MD [address] [place] [address] [email or web address] documented as of this encounter Results * Urinalysis (12/01/2017 11:07 AM EST) COLOR Yellow Yellow [facility] CLARITY Clear [facility] GLUCOSE Negative Negative [facility] BILI Negative Negative [facility] KETONES Negative Negative [facility] SPECIFIC GRAVITY 1.015 1.005 - 1.030 [facility] BLOOD Negative Negative [facility] PH 6.0 5.0 - 8.0 [facility] Protein-UA Negative Negative [facility] NITRITE Negative Negative [facility] Leukocyte esterase, ur Negative Negative [facility] Urine (Urine) 12/01/2017 11: 07 AM EST 12/01/2017 11:08 AM EST us Radha Arias CHIP SEPARATOR LAB URINE ORDERABLES Final Resul t [facility] [address] [place] [address] documented in this encounter Visit Diagnoses Diagnosis Urgency of urination- Primary documented in this encounter Additional Health Concerns Infection Onset Date Last Indicated Resolved Time CoV-Risk 04/03/2020 04/04/2020 04/17/2020 1:23 AM EDT documented as of this encounter Care Teams Geospatial Systems Integrator Relationship Specialty Start Date End Date Natasha Brand NP [address] [place] [address] PCP - General 10/14/17 03/27/18 Scott Finley MD [address] [place] [address], [address] [place] [address] [email or web address] PCP - General Internal Medicine 03/28/18 04/20/24 Scott Finley MD [address] [place] [address] [email or web address] PCP - General Internal Medicine 04/21/24 Natasha Brand NP [address] [place] [address] Historical LMR Provider 08/01/17 Jerry Singh MD [address] [address] [email or web address] Historical LMR Provider 08/01/17 10/18/21 documented as of this encounter Additional Source Comments The information contained in this document represents components of the legal health record. It is not the complete legal health record.[facility]
--- OUTSIDE RECORDS SUMMARY | 2025-08-30 20:18 | XMS_ITS | Encounter Summary ---
Author Organization [facility] Address [address] [place] [address] Phone Care Team Providers Care Tag Writer Name Role Phone Natasha Brand NP Unavailable [phone] Jerry Singh MD Unavailable [phone] Scott Finley MD Primary Care Provider [phone] Scott Finley MD Primary Care Provider [phone] Encounter Details Date Type Department Care Team (Latest Contact Info) Description 11/02/2019 Ancillary Orders [facility], X-Ray - [facility] [address] [place] [address] Matt Lyons, DO [address] [place] [address] [email or web address] Radiculopathy of cervical region Social History Tobacco Use Types Packs/Day Years [...] Description 10/05/2025 1:00 PM EST Office Visit [facility] [address] [place] [address] 3rd Floor, [address] [place] [address] Rigoberto Doss MD [address] [place] [address] [email or web address] documented as of this encounter Results * XR CERVICAL SPINE 4-5 VIEWS (11/02/2019 1:37 PM EST) Anatomical Region Laterality Modality C-spine Radiographic Luisa ging 11/02/2019 2:11 PM EST Impressions 11/02/2019 2:42 PM EST Multilevel cervical spine disc disease, facet arthropathy and severe bilateral neural foraminal stenosis as above. POS - [id number] Narrative 11/02/2019 2:42 PM EST HISTORY: As above. Pain. No trauma. COMPARISON: None. CERVICAL RADIOGRAPH FINDINGS: Seven views obtained. Minimal anterolisthesis of C3 and C4. Mild C4-5 and moderate C5-6 and C6-7 disc space narrowing with mild anterior wedging and endplate osteophytes. Severe multilevel right and moderate left facet arthropathy. Severe multilevel neural foraminal stenosis on the left from C4-5 to C6-7 and on the right from C2-3 to C5-6. No bone lesions. No cervical ribs. Moderate left carotid bulb calcified plaque. Imaged lungs are clear. Procedure Note Vandana Weber MD - 11/02/2019 HISTORY: As above. Pain. No trauma. COMPARISON: None. CERVICAL RADIOGRAPH FINDINGS: Seven views obtained. Minimal anterolisthesis of C3 and C4. Mild C4-5and moderate C5-6 and C6-7 disc space narrowing with mild anterior wedgingand endplate osteophytes. Severe multilevel right and moderate left facetarthropathy. Severe multilevel neural foraminal stenosis on the left fromC4-5 to C6-7 and on the right from C2-3 to C5-6. No bone lesions. Nocervical ribs. Moderate left carotid bulb calcified plaque. Imaged lungsare clear. IMPRESSION: Multilevel cervical spine disc disease, facet arthropathy and severebilateral neural foraminal stenosis as above. POS - [id number] us Matt Lyons DO IMG XR SPINE Final Result documented in this encounter Visit Diagnoses Diagnosis Radiculopathy of cervical region Radiculopathy of cervical region documented in this encounter Additional Health Concerns Infection Onset Date Last Indicated Resolved Time CoV-Risk 04/03/2020 04/04/2020 04/17/2020 1:23 AM EDT documented as of this encounter Care Teams Tag Writer Relationship Specialty Start Date End Date Scott Finley MD [address] [address] [email or web address] PCP - General Internal Medicine 03/28/18 04/20/24 Scott Finley MD [address] [place] [address] [email or web address] PCP - General Internal Medicine 04/21/24 Natasha Brand NP [address] [place] [address] [email or web address] Historical LMR Provider 08/01/17 Jerry Singh MD [address] [place] [address] [email or web address] Historical LMR Provider 08/01/17 10/18/21 documented as of this encounter Additional Source Comments The information contained in this document represents components of the legal health record. It is not the complete legal health record.[facility]
--- OUTSIDE RECORDS SUMMARY | 2025-08-30 20:18 | XMS_ITS | Encounter Summary ---
Author Organization [facility] Address [address] [facility] [address] [place] [address] Phone Care Team Providers Care Tip Cementer Name Role Phone Natasha Brand NP Unavailable [phone] Jerry Singh MD Unavailable [phone] Scott Finley MD Primary Care Provider [phone] Scott Finley MD Primary Care Provider [phone] Encounter Details Date Type Department Care Team (Latest Contact Info) Description 04/03/2020 Transcribe Orders Virtual Department [address] [place] [address] He Olivia PA [address] [facility] [address] [place] [address] [email or web address] SOB (shortness of breath) (Primary Dx) Social History Tobacco Use Types [...] Upcoming Encounters Date Type Department Care Team ( st Contact Info) Description 10/05/2025 1:00 PM EST Office Visit [facility] [address] [place] [address] 3rd Floor, [address] [address] Rigoberto Doss MD [address] [place] [address] [email or web address] documented as of this encounter Results * COVID-19 PCR Order (04/04/2020 9:00 AM EDT) Specimen Source NASOPHARYNGEAL SWAB (MOBILE SECURITY SPECIALIST) [facility] COVID Testing Status [place] [facility] Other 04/04/2020 9:00 AM EDT 04/04/2020 10:52 AM EDT He [facility] GENERAL ORDERABLES Final Result [facility] [address] [place] [address] documented in this encounter Visit Diagnoses Diagnosis SOB (shortness of breath)- Primary Shortness of breath documented in this encounter Additional Health Concerns Infection Onset Date Last Indicated Resolved Time CoV-Risk 04/03/2020 04/04/2020 04/17/2020 1:23 AM EDT documented as of this encounter Care Teams Tip Cementer Relationship Specialty Start Date End Date Scott Finley MD [address] [place] [address] [email or web address] PCP - General Internal Medicine 03/28/18 04/20/24 Scott Finley MD [address] [place] [address] [email or web address] PCP - General Internal Medicine 04/21/24 Natasha Brand NP [address] [place] [address] [email or web address] Historical LMR Provider 08/01/17 Jerry Singh MD [address] [place] [address], [facility] [address] [place] [address] [email or web address] Historical LMR Provider 08/01/17 10/18/21 documented as of this encounter Additional Source Comments The information contained in this document represents components of the legal health record. It is not the complete legal health record.[facility]
--- OUTSIDE RECORDS SUMMARY | 2025-08-30 20:18 | XMS_ITS | Encounter Summary ---
Author Organization [facility] Address [address] [facility] [address] [place] [address] Phone Care Team Providers Care Telephone Engineer Name Role Phone Natasha Brand NP Unavailable [phone] Jerry Singh MD Unavailable [phone] Scott Finley MD Primary Care Provider [phone] Scott Finley MD Primary Care Provider [phone] Encounter Details Date Type Department Care Team (Late st Contact Info) Description 03/22/2019 Ancillary Orders [facility], X-Ray - [address] [address] Matt Lyons, DO [address] [place] [address] [email or web address] Adhesive capsulitis of right shoulder Social History Tobacco Use Types Packs/Day Years [...] Description 10/05/2025 1:00 PM EST Office Visit [facility] [address] [place] [address] 3rd Floor, [address] [place] [address] Rigoberto Doss MD [address] [place] [address] [email or web address] documented as of this encounter Results * XR SHOULDER 2 VIEWS (RIGHT) (03/22/2019 1:39 PM EDT) Anatomical Region Laterality Modality Shoulder Right Radiographic Luisa ging 03/22/2019 5:10 PM EDT Impressions 03/22/2019 5:39 PM EDT Glenohumeral and acromioclavicular osteoarthritis. POS - [id number] Edited by: Miryam Krishnamurthy on 03/22/2019 5:30 PM Narrative 03/22/2019 5:39 PM EDT Right shoulder 3 views. No prior. No glenohumeral or acromioclavicular malalignment. No finding of chronic rotator cuff tear. There is osteoarthritic change with spurring at the inferior margin the glenohumeral joint. There is osteoarthritic change with spurring at the acromioclavicular joint. The proliferation is both superior and inferior but the inferior spur is fairly small. No marked impingement changes in the humeral head. No bony destructive lesions or abnormal soft tissue mineralization. Procedure Note Erlin Choi MD - 03/22/2019 Right shoulder 3 views. No prior. No glenohumeral or acromioclavicularmalalignment. No finding of chronic rotator cuff tear. There isosteoarthritic change with spurring at the inferior margin theglenohumeral joint. There is osteoarthritic change with spurring at theacromioclavicular joint. The proliferation is both superior and inferiorbut the inferior spur is fairly small. No marked impingement changes inthe humeral head. No bony destructive lesions or abnormal soft tissuemineralization. IMPRESSION: Glenohumeral and acromioclavicular osteoarthritis. POS - [id number] Edited by: Miryam Krishnamurthy on 03/22/2019 5:30 PM us Matt Lyons DO IMG XR UPPER EXTREMITY Final Result documented in this encounter Visit Diagnoses Diagnosis Adhesive capsulitis of right shoulder Adhesive capsulitis of right shoulder documented in this encounter Additional Health Concerns Infection Onset Date Last Indicated Resolved Time CoV-Risk 04/03/2020 04/04/2020 04/17/2020 1:23 AM EDT documented as of this encounter Care Teams Telephone Engineer Relationship Specialty Start Date End Date Scott Finley MD [address] [address] [email or web address] PCP - General Internal Medicine 03/28/18 04/20/24 Scott Finley MD [address] [place] [address] [email or web address] PCP - General Internal Medicine 04/21/24 Natasha Brand NP [address] [place] [address] Historical LMR Provider 08/01/17 Jerry Singh MD [address] [place] [address] [email or web address] Historical LMR Provider 08/01/17 10/18/21 documented as of this encounter Additional Source Comments The information contained in this document represents components of the legal health record. It is not the complete legal health record.[facility]
--- OUTSIDE RECORDS SUMMARY | 2025-08-30 20:18 | XMS_ITS | Encounter Summary ---
Author Organization [facility] Address [address] [facility] [facility] [address] [place] [address] Phone Care Team Providers Care Machinist Helper Name Role Phone Natasha Brand NP Unavailable [phone] Jerry Singh MD Unavailable [phone] Scott Finley MD Primary Care Provider [phone] Scott Finley MD Primary Care Provider [phone] Encounter Details Date Type Department Care Team (Late st Contact Info) Description 12/23/2020 Ancillary Orders [address] [address] Tom Magdaleno MD [address] [place] [address] [email or web address] Left hip pain Social History Tobacco Use Types Packs/Day Years [...] Description 10/05/2025 1:00 PM EST Office Visit [facility] [address] [place] [address] 3rd Floor, [address] [place] [address] Rigoberto Doss MD [address] [place] [address] [email or web address] Pending Results Name Type Priority Associated Diagnoses Date /Time FL Guidance Needle Placement Non-Spine Imaging Routine Left hip pain 12/27/2020 9:06 AM EDT Scheduled Orders Name Type Priority Associated Diagnoses Orde r Schedule FL Guidance Needle Placement Non-Spine Imaging Routine Left hip pain 1 Occurrences starting 12/23/2020 until 03/25/2021 documented as of this encounter Visit Diagnoses Diagnosis Left hip pain Pain in joint, pelvic region and thigh documented in this encounter Care Teams Machinist Helper Relationship Specialty Start Date End Date Scott Finley MD [address] [address] [email or web address] PCP - General Internal Medicine 03/28/18 04/20/24 Scott Finley MD [address] [place] [address] [email or web address] PCP - General Internal Medicine 04/21/24 Natasha Brand NP [address] [place] [address] [email or web address] Historical LMR Provider 08/01/17 Jerry Singh MD [address] [place] [address] [email or web address] Historical LMR Provider 08/01/17 10/18/21 documented as of this encounter Additional Source Comments The information contained in this document represents components of the legal health record. It is not the complete legal health record.[facility]
--- OUTSIDE RECORDS SUMMARY | 2025-08-30 20:18 | XMS_ITS | Encounter Summary ---
Author Organization [facility] Address [address] [facility] [address] [place] [address] Phone Care Team Providers Care Trucksmith Name Role Phone Natasha Brand NP Unavailable [phone] Scott Finley MD Primary Care Provider [phone] Scott Finley MD Primary Care Provider [phone] Encounter Details Date Type Department Care Team (Late st Contact Info) Description 12/25/2021 Procedure Pass [facility], Ct Scan - [address] [address] Social History Tobacco Use Types Packs/Day Years [...] 10:00 AM EDT Enriqueta Orlando RN * [place] Suicide Severity Rating Scale (Screener/Recent Self-Report) Question [...] Description 10/05/2025 1:00 PM EST Office Visit [facility] [address] [place] [address] 3rd Floor, [address] [place] [address] Rigoberto Doss MD [address] [place] [address] [email or web address] documented as of this encounter Visit Diagnoses Not on filedocumented in this encounter Care Teams Trucksmith Relationship Specialty Start Date End Date Scott Finley MD [address] [place] [address] [email or web address] PCP - General Internal Medicine 03/28/18 04/20/24 Scott Finley MD [address] [place] [address] [email or web address] PCP - General Internal Medicine 04/21/24 Natasha Brand NP [address] [place] [address] [email or web address] Historical [email or web address] Provider 08/01/17 documented as of this encounter Additional Source Comments The information contained in this document represents components of the legal health record. It is not the complete legal health record.[facility]
--- OUTSIDE RECORDS SUMMARY | 2025-08-30 20:18 | XMS_ITS | Encounter Summary ---
Author Organization [facility] Address [address] [place] [address] Phone Care Team Providers Care Helicopter Crew Chief Name Role Phone Natasha Brand NP Unavailable [phone] Jerry Singh MD Unavailable [phone] Natasha Brand NP Primary Care Provider [phone] Scott Finley MD Primary Care Provider [phone] Scott Finley MD Primary Care Provider [phone] Reason for Referral * MRI/CAT Scan - Closed Specialty Diagnoses / Procedures Referred By Contac t Referred To Contact Radiology Diagnoses Unspecified injury of muscle, fascia and tendon of right hip, initial encounter Procedures MRI Femur (Right) MRI Angio Lower Extremity (Right) Radha Arias NP Phone: tel: fax: mailto: m Referral ID Status Reason Start Date Expiration Date Visits Re quested Visits Authorized [id number] Closed 12/01/2017 12/01/2018 1 1 * MRI/CAT Scan - Closed Specialty Diagnoses / Procedures Referred By Contac t Referred To Contact Radiology Diagnoses Derangement of lateral meniscus of right knee Procedures MRI Knee (Right) Radha Arias NP Phone: tel: fax: mailto: m Referral ID Status Reason Start Date Expiration Date Visits Re quested Visits Authorized [id number] Closed 12/01/2017 12/01/2018 1 1 Encounter Details Date Type Department Care Team (Late Contact Info) Description 12/01/2017 Ancillary Orders Virtual Department [address] [place] [address] Radha Arias NP [address] [place] [address] [phone] [email or web address] Derangement of lateral meniscus of right knee; Unspecified injury of muscle, fascia and tendon of right hip, initial encounter Social History Tobacco Use Types Packs/Day Years [...] Encounters Date Type Department Care Team (Late Contact Info) Description 10/05/2025 1:00 PM EST Office Visit [facility] [address] [place] [address] [address]rd Floor, [address] [place] [address] Rigoberto Doss MD [address] [place] [id number] documented as of this encounter Results * MRI FEMUR WITHOUT CONTRAST (RIGHT) (12/13/2017 3:29 PM EST) Anatomical Region Laterality Modality Thigh Right Magnetic Resonan ce 12/13/2017 6:32 PM EST Impressions 12/13/2017 7:12 PM EST Grade 2 tear of the hamstring complex. Probable tendinopathy/partial tearing involving the incompletely imaged left hamstring complex. [id number] Edited by: Miryam Krishnamurthy on 12/13/2017 6:57 PM Narrative 12/13/2017 7:12 PM EST HISTORY: Posterior bruising from hip to ankle ~10 days after a fall which occurred 4 weeks ago. COMPARISON: None. TECHNIQUE: Axial T1, T2 STIR, sagittal T1 and STIR, coronal T1 and STIR. FINDINGS: There is avulsion of the biceps femoris and semitendinosus tendons from the ischial tuberosity with retraction of the avulsed tendons. Feathery hyperintense T2 signal within the biceps femoris and semitendinosus musculature from muscle strain. Thickening and signal heterogeneity involves the semimembranosus tendon with a small bright T2 signal defect at the ischial tuberosity from tendinopathy and a partial tear. Small degree of marrow edema within the ischial tuberosity. Small corticated bony fragment posterior likely from enthesopathy. No large intramuscular hematoma. There is heterogeneous signal with areas of bright T2 signal at the left hamstring complex attachment only seen in the coronal plane. This is likely related to tendinopathy and potential partial tearing. Small amount of fluid signal at the posterior aspect of the left greater trochanter could be related to bursitis. Procedure Note Edison Otoole MD - 12/13/2017 HISTORY: Posterior bruising from hip to ankle ~10 days after a fall whichoccurred 4 weeks ago. COMPARISON: None. TECHNIQUE: Axial T1, T2 STIR, sagittal T1 and STIR, coronal T1 and STIR. FINDINGS: There is avulsion of the biceps femoris and semitendinosus tendons fromthe ischial tuberosity with retraction of the avulsed tendons. Featheryhyperintense T2 signal within the biceps femoris and semitendinosusmusculature from muscle strain. Thickening and signal heterogeneityinvolves the semimembranosus tendon with a small bright T2 signal defectat the ischial tuberosity from tendinopathy and a partial tear. [place]al[place]ree of marrow edema within the ischial tuberosity. Small corticatedbony fragment posterior likely from enthesopathy. No large intramuscularhematoma. There is heterogeneous signal with areas of bright T2 signal at the lefthamstring complex attachment only seen in the coronal plane. This islikely related to tendinopathy and potential partial tearing. Smallamount of fluid signal at the posterior aspect of the left greatertrochanter could be related to bursitis. IMPRESSION: Grade 2 tear of the hamstring complex. Probable tendinopathy/partial tearing involving the incompletely imagedleft hamstring complex. [id number] Edited by: Miryam Krishnamurthy on 12/13/2017 6:57 PM Radha Mesha Cantue FIRE CONTROL TECHNICIAN IMG MR EXTREMITY Final Result * MRI KNEE WITHOUT CONTRAST (RIGHT) (12/13/2017 2:50 PM EST) Anatomical Region Laterality Modality Knee Right Magnetic Resonan ce 12/13/2017 2:55 PM EST Impressions 12/13/2017 3:02 PM EST Image quality degraded by motion artifact. 1. Tear of the body and posterior horn of the medial meniscus and posterior meniscal root attachment. 2. Partial tear versus high-grade anterior cruciate ligament sprain. 3. 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 POS - [id number] Narrative 12/13/2017 3:02 PM EST COMPARISON: Right knee x-ray 12/01/2017. TECHNIQUE: Exam performed on a 1.5 Gisela high-field MRI scanner. Axial proton density with fat suppression, coronal proton density and proton density with fat suppression, sagittal T1, oblique sagittal proton density and proton density with fat suppression parallel to the plane of the ACL sequences were obtained. MRI RIGHT KNEE FINDINGS: Image quality degraded by motion artifact. Patella: No patella malalignment or chondromalacia. Menisci: Lateral meniscus is intact. No tear or discoid meniscus. There is increase T2 signal within the body and posterior horn of the medial meniscus. Abnormal signal extends to the inferior articular surface of the posterior horn. The posterior horn is truncated. There is focal fluid signal intensity in the posterior meniscal root attachment. No bucket-handle tear identified. Cruciate ligaments: Posterior cruciate ligament is intact. There is diffuse increased T2 signal throughout the anterior cruciate ligament with indistinctness of the fibers indicative of a partial tear or high-grade sprain. Collateral ligaments: Medial and lateral collateral ligaments are intact. Extensor mechanism: Quadriceps and patellar tendons are intact. Bone marrow/joint: Mild medial compartment joint space narrowing and osteophytes with mild focal subchondral marrow edema in the medial tibial plateau and central distal femur which may be reactive or represent small contusions. No malalignment. No suspicious marrow signal changes. Moderate size joint effusion and moderate size septated Gibbons's cyst measuring up to 6.4 cm in length. Mild diffuse soft tissue edema. Procedure Note Vandana Weber MD - 12/13/2017 COMPARISON: Right knee x-ray 12/01/2017. TECHNIQUE: Exam performed on a 1.5 Gisela high-field MRI scanner. Axialproton density with fat suppression, coronal proton density and protondensity with fat suppression, sagittal T1, oblique sagittal proton densityand proton density with fat suppression parallel to the plane of the ACLsequences were obtained. MRI RIGHT KNEE FINDINGS: Image quality degraded by motion artifact. Patella: No patella malalignment or chondromalacia. Menisci: Lateral meniscus is intact. No tear or discoid meniscus. Thereis increase T2 signal within the body and posterior horn of the medialmeniscus. Abnormal signal extends to the inferior articular surface ofthe posterior horn. The posterior horn is truncated. There is focalfluid signal intensity in the posterior meniscal root attachment. [place]-handle tear identified. Cruciate ligaments: Posterior cruciate ligament is intact. There isdiffuse increased T2 signal throughout the anterior cruciate ligament withindistinctness of the fibers indicative of a partial tear or high-gradesprain. Collateral ligaments: Medial and lateral collateral ligaments areintact. Extensor mechanism: Quadriceps and patellar tendons are intact. Bone marrow/joint: Mild medial compartment joint space narrowing andosteophytes with mild focal subchondral marrow edema in the medial tibialplateau and central distal femur which may be reactive or represent smallcontusions. No malalignment. No suspicious marrow signal changes.Moderate size joint effusion and moderate size septated Gibbons's cystmeasuring up to 6.4 cm in length. Mild diffuse soft tissue edema. IMPRESSION: Image quality degraded by motion artifact. 1. Tear of the body and posterior horn of the medial meniscus andposterior meniscal root attachment. 2. Partial tear versus high-grade anterior cruciate ligament sprain. 3. Osteoarthritis with a moderate size joint effusion and complex Gibbons'scyst. POS - [id number] us Radha Zimmer Rae FIRE CONTROL TECHNICIAN IMG MR EXTREMITY Final Result documented in this encounter Visit Diagnoses Diagnosis Derangement of lateral meniscus of right knee Unspecified injury of muscle, fascia and tendon of right hip, initial encounter Derangement of lateral meniscus of right knee Unspecified injury of muscle, fascia and tendon of right hip, initial encounter documented in this encounter Additional Health Concerns Infection Onset Date Last Indicated Resolved Time CoV-Risk 04/03/2020 04/04/2020 04/17/2020 1:23 AM EDT documented as of this encounter Care Teams Helicopter Crew Chief Relationship Specialty Start Date End Date Natasha Brand NP [address] [place] [address] [email or web address] PCP - General 10/14/17 03/27/18 Scott Finley MD [address] [place] [id number] PCP - General Internal Medicine 03/28/18 04/20/24 Scott Finley MD [address] [place] [address] [email or web address] PCP - General Internal Medicine 04/21/24 Natasha Brand NP [address] [place] [address] [email or web address] Historical LMR Provider 08/01/17 Jerry Singh MD [address] [place] [id number] Historical LMR Provider 08/01/17 10/18/21 documented as of this encounter Additional Source Comments The information contained in this document represents components of the legal health record. It is not the complete legal health record.[facility]
--- OUTSIDE RECORDS SUMMARY | 2025-08-30 20:18 | XMS_ITS | Encounter Summary ---
Author Organization [facility] Address [address] [place] [address] Phone Care Team Providers Care Research Lab Assistant Name Role Phone Natasha Brand NP Unavailable [phone] Scott Finley MD Primary Care Provider [phone] Scott Finley MD Primary Care Provider [phone] Encounter Details Date Type Department Care Team (Late st Contact Info) Description 10/02/2022 Ancillary Orders [address] [address] Babs Mars MD [address] [place] [address] Orthopedics & Sports Medicine, [place] [address] [email or web address] Hip pain, right Social History Tobacco Use Types Packs/Day Years [...] Description 10/05/2025 1:00 PM EST Office Visit [facility] [address] [place] [address] [address] Floor, [address] [place], [place] [id number] Rigoberto Doss MD [address] [place] [phone] [email or web address] Pending Results Name Type Priority Associated Diagnoses Date /Time FL Guidance Needle Placement Non-Spine Imaging Routine Hip pain, right 10/06/2022 9:08 AM EST Scheduled Orders Name Type Priority Associated Diagnoses Orde r Schedule FL Guidance Needle Placement Non-Spine Imaging Routine Hip pain, right 1 Occurrences starting 10/02/2022 until 12/31/2022 documented as of this encounter Visit Diagnoses Diagnosis Hip pain, right Pain in joint, pelvic region and thigh documented in this encounter Care Teams Research Lab Assistant Relationship Specialty Start Date End Date Scott Finley MD [address] [place] [address] [email or web address] PCP - General Internal Medicine 03/28/18 04/20/24 Scott Finley MD [address] [place] [address] [email or web address] PCP - General Internal Medicine 04/21/24 Natasha Brand NP [address] [place] [address] [email or web address] LMR Provider 08/01/17 documented as of this encounter Additional Source Comments The information contained in this document represents components of the legal health record. It is not the complete legal health record.[facility]
--- OUTSIDE RECORDS SUMMARY | 2025-08-30 20:18 | XMS_ITS | Encounter Summary ---
Author Organization [facility] Address [address] [place] [address] Phone Care Team Providers Care Peeler Operator Name Role Phone Natasha Brand NP Unavailable [phone] Scott Finley MD Primary Care Provider [phone] Scott Finley MD Primary Care Provider [phone] Encounter Details Date Type Department Care Team (Late st Contact Info) Description 12/25/2021 Procedure Pass [facility], Ct Scan - [address] [address] Social History Tobacco Use Types Packs/Day Years [...] 10:00 AM EDT Enriqueta Orlando RN * [place] Suicide Severity Rating Scale (Screener/Recent Self-Report) Question [...] Description 10/05/2025 1:00 PM EST Office Visit [facility] [address] [place] [address] [address]rd Floor, [address] [place] [address] Rigoberto Doss MD [address] [place] [phone] [email or web address] documented as of this encounter Visit Diagnoses Not on filedocumented in this encounter Care Teams Peeler Operator Relationship Specialty Start Date End Date Scott Finley MD [address] [place] [address] [email or web address] PCP - General Internal Medicine 03/28/18 04/20/24 Scott Finley MD [address] [place] [address] [email or web address] PCP - General Internal Medicine 04/21/24 Natasha Brand NP [address] [place] [address] [email or web address] Historical LMR Provider 08/01/17 documented as of this encounter Additional Source Comments The information contained in this document represents components of the legal health record. It is not the complete legal health record.[facility]
--- OUTSIDE RECORDS SUMMARY | 2025-08-30 20:18 | XMS_ITS | Encounter Summary ---
Author Organization [facility] Address [address] [place] [id number] Phone Care Team Providers Care Sports Athletic Trainer Name Role Phone Natasha Brand BAND INSTRUMENT MAKER Unavailable [phone] Scott Finley MD Primary Care Provider [phone] Scott Finley MD Primary Care Provider [phone] Reason for Referral * MRI/CAT Scan - Closed Specialty Diagnoses / Procedures Referred By Contac t Referred To Contact Radiology Diagnoses Other form of dyspnea Procedures CT Chest Natasha Brand NP [address] [place] [address] Phone: tel: fax: mailto:[email or web address] Referral ID Status Reason Start Date Expiration Date Visits Re quested Visits Authorized [id number] Closed 03/21/2024 03/21/2025 1 1 * MRI/CAT Scan - Closed Specialty Diagnoses / Procedures Referred By Car tucker Referred To Contact Radiology Diagnoses Other form of dyspnea Procedures NC Myocardial Perfusion Pharmacologic Stress Multiple Natasha Brand NP [address] [place] [address] Phone: tel: fax: mailto:[email or web address] Referral ID Status Reason Start Date Expiration Date Visits Re quested Visits Authorized [id number] Closed 03/21/2024 03/21/2025 4 4 * Outpatient Procedure - Closed Specialty Diagnoses / Procedures Referred By Car tucker Referred To Contact Radiology Diagnoses Other form of dyspnea Procedures Adult Echo TTE Natasha Brand NP [address] [place] [address] Phone: tel: fax: mailto:[email or web address] Referral ID Status Reason Start Date Expiration Date Visits Re quested Visits Authorized [id number] Closed 03/21/2024 03/21/2025 1 1 Encounter Details Date Type Department Care Team ([facility] Contact Info) Description 03/21/2024 Transcribe Orders Virtual Department [address] [place] [address] Natasha Brand NP [address] [place] [address] [email or web address] Other form of dyspnea (Primary Dx) Social History Tobacco Use Types [...] Description 10/05/2025 1:00 PM EST Office Visit [facility] [address], [address] [place] [address] Rigoberto Doss MD [address] [place] [phone] [email or web address] documented as of this encounter Results * CT CHEST WITHOUT CONTRAST (04/11/2024 3:23 PM EDT) Anatomical Region Laterality Modality Chest Computed Tomogra phy 04/18/2024 7:02 AM EDT Impressions 04/18/2024 7:39 AM EDT 1. Moderate left pleural effusion with loculated component along the fissure and scattered atelectasis in the lungs. 2. No obvious airspace opacity to suggest pneumonia. 3. 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 4. Scattered lucent lesions in the bilateral ribs, not significantly changed since September 2018, therefore likely benign. The Radiologist Diagnostic Certainty Scale is a guide that conveys to patients and providers a radiologist's subjective diagnostic confidence: Most likely means very high probability Likely means high probability May represent means intermediate probability Unlikely means low probability Very unlikely means very low probability You can find out more about our efforts to improve the clarity of radiology reports for our patients and providers by visiting [email or web address] Narrative 04/18/2024 7:[address] CHEST WITHOUT CONTRAST Referring clinician's provided indication for this examination in Epic: Outside Radiology Order; dyspnea TECHNIQUE: Multidetector CT of the chest was performed without intravenous contrast using tailored dose modulation. COMPARISON: CT CHEST WITHOUT CONTRAST ; CT CHEST PULMONARY ANGIOGRAM (ACUTE) FINDINGS: Devices/Tubes/Lines: None. Lungs: New subsegmental atelectasis in the lingula and bilateral scattered subsegmental atelectasis. Scattered mucus plugging. Few scattered lung nodules are similar to prior, the largest measuring 3 mm in right lower lobe (5; 213. A 2 mm nodule in the right apex was not confidently seen on prior (5; 80). The central airways are patent. 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 Pleura: Decreased, now trace right pleural effusion. New moderate left pleural effusion with loculated fissural component. Mediastinum: No thyroid nodules. Heart and pericardium are normal. Stranding of the fat in the left cardiophrenic angle. Mild amount of coronary calcifications. Lymph Nodes: No enlarged supraclavicular, axillary, mediastinal, or hilar lymph nodes. Upper Abdomen: Cholelithiasis. Absence of intravenous contrast limits sensitivity for detecting solid organ findings. Chest Wall: No chest wall mass. Bones: Multiple scattered lucent lesions notably involving the bilateral ribs, not significantly changed since September 2018 (example in the right fourth rib 5; 116). Old bilateral rib fractures. Procedure Note Jennifer Oh MD - 04/18/2024 CT CHEST WITHOUT CONTRAST Referring clinician's provided indication for this examination in [facility]:Outside Radiology Order; dyspnea TECHNIQUE: Multidetector CT of the chest was performed without intravenouscontrast using tailored dose modulation. COMPARISON: CT CHEST WITHOUT CONTRAST ; CT CHEST PULMONARYANGIOGRAM (ACUTE) FINDINGS: Devices/Tubes/Lines: None. Lungs: New subsegmental atelectasis in the lingula and bilateral scatteredsubsegmental atelectasis. Scattered mucus plugging. Few scattered lungnodules are similar to prior, the largest measuring 3 mm in right lowerlobe (5; 213. A 2 mm nodule in the right apex was not confidently seen onprior (5; 80). The central airways are patent. Similar nodular thickening of the tracheawith relative sparring of the posterior wall (example 5; 105 and 125),stable at least since 2018, most likely benign and may representtracheobronchopathia osteochondroplastica. Pleura: Decreased, now trace right pleural effusion. New moderate leftpleural effusion with loculated fissural component. Mediastinum: No thyroid nodules. Heart and pericardium are normal.Stranding of the fat in the left cardiophrenic angle. Mild amount ofcoronary calcifications. Lymph Nodes: No enlarged supraclavicular, axillary, mediastinal, or hilarlymph nodes. Upper Abdomen: Cholelithiasis. Absence of intravenous contrast limitssensitivity for detecting solid organ findings. Chest Wall: No chest wall mass. Bones: Multiple scattered lucent lesions notably involving the bilateralribs, not significantly changed since September 2018 (example in the rightfourth rib 5; 116). Old bilateral rib fractures. IMPRESSION: 1. Moderate left pleural effusion with loculated component along thefissure and scattered atelectasis in the lungs. 2. No obvious airspace opacity to suggest pneumonia. 3. 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 4. Scattered lucent lesions in the bilateral ribs, not significantlychanged since September 2018, therefore likely benign. The Radiologist Diagnostic Certainty Scale is a guide that conveys topatients and providers a radiologist's subjective diagnostic confidence: Most likely means very high probability Likely means high probability May represent means intermediate probability Unlikely means low probability Very unlikely means very low probability You can find out more about our efforts to improve the clarity ofradiology reports for our patients and providers by [email or web address] Natasha Brand NP IMG CT CHEST Final Result * NC Myocardial Perfusion Pharmacologic Stress Multiple (04/06/2024 11:58 AM EDT) Anatomical Region Laterality Modality Heart, Vascular Nuclear Medicine 04/06/2024 12:2 1 PM EDT Impressions 04/06/2024 12:26 PM EDT Equivocal mild apical ischemia without additional ischemic zones noted. The LVEF was calculated at greater than 75%. POS [id number] Narrative 04/06/2024 12:26 PM EDT COMPARISON: None HISTORY: Dyspnea on exertion DOSE: 9.7 mCi of technetium 99m sestamibi intravenously at rest and 29.4 mCi of technetium 99m sestamibi subsequently in the day during pharmacologic stress. SPECT images were obtained, gated at stress. FINDINGS: Left ventricular cavity size is felt to be within normal limits. On the stress portion examination there appears be very minimally diminished tracer uptake in the apical and distal anteroapical segments which normalize on the rest images. Tracer distribution throughout the remainder the left ventricular myocardium is felt to be essentially stable at stress and rest without additional reversible or defined fixed perfusion defects noted. No focal abnormality of myocardial thickening was demonstrated. The LVEF was calculated at 79% and the TID ratio approximated upper limits normal at 1.19. Procedure Note Scott Prater MD - 04/06/2024 COMPARISON: None HISTORY: Dyspnea on exertion DOSE: 9.7 mCi of technetium 99m sestamibi intravenously at rest and 29.4mCi of technetium 99m sestamibi subsequently in the day duringpharmacologic stress. SPECT images were obtained, gated at stress. FINDINGS: Left ventricular cavity size is felt to be within normal limits. On thestress portion examination there appears be very minimally diminishedtracer uptake in the apical and distal anteroapical segments whichnormalize on the rest images. Tracer distribution throughout the remainderthe left ventricular myocardium is felt to be essentially stable at stressand rest without additional reversible or defined fixed perfusion defectsnoted. No focal abnormality of myocardial thickening was demonstrated. TheLVEF was calculated at 79% and the TID ratio approximated upper limitsnormal at 1.19. IMPRESSION: Equivocal mild apical ischemia without additional ischemic zones noted.The LVEF was calculated at greater than 75%. POS [id number] Natasha Brand NP CV NM CARDIAC Final Result * TTE COMPREHENSIVE (03/27/2024 10:05 AM EDT) Body Surface Area 2.16 m2 Height 180 cm Weight 96 kg Systolic BP 113 mmHg Diastolic BP 61 mmHg Interventricular Septum Thickness 12 6 - 11 mm Left Ventricle Internal Diameter End Diastole 37 42 - 58 mm Left Ventricle Internal Diameter End Systole 28 <40 mm Left Ventricular Outflow Tract Diameter 21.0 mm LVOT VTI REST 229.0 mm Left Ventricular Outflow Tract Velocity 1.2 m/s Left Ventricular Outflow Tract Gradient at Rest 6 mmHg Left Ventricular Posterior Wall Thickness 12 6 - 11 mm Ejection Fraction 58 50 - 75 Percent Left Atrium Dimension Anterior-Posterior 40 15 - 40 mm Aortic Valve Mean Gradient 4 mmHg Aortic Valve Time Velocity Integral 303.0 mm Aortic Valve Peak Velocity 159.0 cm/s Aortic Valve Peak Gradient 10 mmHg Aortic Sinus Diameter 33 <40 mm Ascending Aorta Diameter 35 <36 mm Inferior Vena Cava Diameter 14 <21 mm Mitral Valve Deceleration Time 271 ms Mitral Valve A Wave Speed 55.3 cm/s Mitral Valve E Wave Speed 75.0 cm/s Right Ventricle Basal Diameter 27 25 - 41 mm Tricuspid Valve Peak Velocity 2.5 m/s Raw LV EF% 43 % Relative Wall Thickness 0.65 0.22 - 0.42 Aortic Valve Prosthetic Peak Gradient 10 mmHg Aortic Valve Prosthetic Mean Gradient 4 mmHg Aortic Valve Sinus Index by BSA 15 mm/m2 Aorta Sinus Index by Height 1.83 cm/m Aorta Sinus CSA index by Height 4.75 cm2/m Ascending Aorta Index 16 mm/m2 Asc Aorta CSA Index by Height 5.34 cm2/m Right Ventricle to Right Atrium Pressure Gradient 25 mmHg Right Ventricle Peak Systolic Pressure (Assuming RAP 10) 35 mmHg RVSP (Exclusive of RAP) 25 mmHg MGB CV ECHO TV RVSP (ASSUMING RAP OF 5) 30 mmHg Ascending Aorta Index 16 mm Aortic Sinus Index 15 mm Ascending Aorta Diameter 16 mm Aortic Valve Sinus Index 1 15 20 - 32 mm AO ASC DIAM BSA INDEX 16.20 Left Atrial Volume Index 17 16 - 34 mL/m2 Right Ventricle Peak Systolic Pressure 28 mmHg Left Ventricle Ea Lateral Wave Speed 9.7 cm/s Right Ventricle TAPSE 19 >=17 mm MV E/E' Tissue Velocity Lateral 7.73 Right Ventricle Pulse Doppler S Wave 16.6 >=9.5 cm/s Left Ventricle E Wave Speed 75.0 cm/s Left Ventricle A Wave Speed 55.0 cm/s MV E/A ratio 1.4 Left Ventricle Ea Septal Wave Speed 7.7 cm/s MV E/e' septal 9.74 Left Ventricle E/e' Average 8.7 Left Atrial Volume 37 mL Left Atrial Volume Index by Height 21 mL/m Right Atrium Pressure Estimated 3 mmHg Echo E/Ea 9.74 Anatomical Region Laterality Modality Heart Ultrasound Narrative 03/27/2024 12:30 PM EDT Mild LVH with normal LV systolic function EF 60%. Normal RV size and function. Normal diastolic function. Normal PA pressure estimation. No significant valvular heart disease is seen. No clear cause for shortness of breath seen on this study. Left Ventricle The left ventricle is normal in size. There is concentric hypertrophy. There is normal left ventricular systolic function. The LV ejection fraction is 58% (calculated via biplane measurement). There are no wall motion abnormalities. LV diastolic function appears within normal limits for age. The E/A ratio is 1.4. The e' septal wave velocity is 7.7 cm/s. The e' lateral wave velocity is 9.7 cm/s. The average E/e' ratio is 8.7. Right Ventricle The right ventricle is normal in size. There is normal right ventricular systolic function. TAPSE is 19 mm. RV S' wave is 16.6 cm/s. Left Atrium The left atrium is normal in size. The left atrial anterior-posterior dimension is 40 mm. The left atrial volume index by BSA is 17 mL/m2. Right Atrium The right atrium is normal in size. The IVC is normal in size with normal inspiratory collapse. Mitral Valve The mitral valve appears normal. There is no mitral stenosis. There is no mitral regurgitation. Tricuspid Valve The tricuspid valve appears normal. There is no tricuspid stenosis. There is trace tricuspid regurgitation. The RV systolic pressure was calculated at 28 mmHg (using TR peak velocity of 2.5 m/s and assuming an RA pressure of 3 mmHg). Aortic Valve The aortic valve is suboptimally visualized. Multiple leaflets are thickened at the tips (aortic sclerosis). There is no aortic stenosis. There is no aortic regurgitation. The visualized portions of the thoracic aorta appear normal in size. Pulmonic Valve The pulmonic valve appears normal. There is no pulmonic stenosis. There is no pulmonic regurgitation. Pericardium There is a pleural effusion. General Findings The study was technically difficult (4). Limited parasternal window. Technique(s) used in the evaluation: Color flow Doppler and Spectral Doppler. The predominant rhythm during the study was sinus. Comparison Findings There are no prior studies for comparison. IAS/IVS The interatrial septum appears normal. Natasha Brand BAND INSTRUMENT MAKER CV ECHO ORDERABLES Final Resul t documented in this encounter Visit Diagnoses Diagnosis Other form of dyspnea- Primary Other form of dyspnea Other form of dyspnea Other form of dyspnea documented in this encounter Care Teams Sports Athletic Trainer Relationship Specialty Start Date End Date Scott Finley MD [address] [place] [address] [email or web address] PCP - General Internal Medicine 03/28/18 04/20/24 Scott Finley MD [address] [place] [address] [email or web address] PCP - General Internal Medicine 04/21/24 Natasha Brand NP [address] [place] [address] [email or web address] LMR Provider 08/01/17 documented as of this encounter Additional Source Comments The information contained in this document represents components of the legal health record. It is not the complete legal health record.[facility]
--- OUTSIDE RECORDS SUMMARY | 2025-08-30 20:19 | XMS_ITS | Clinical Summary ---
Author Organization [facility] Address [address] [place] [address] Phone Care Team Providers Care Senior Regulatory Affairs Specialist Name Role Phone Natasha Brand NP Unavailable [phone] Scott Finley MD Primary Care Provider [phone] Allergies No known active allergies Medications sertraline (ZOLOFT) 100 MG tablet Take 100 mg by mouth daily. Active divalproex (DEPAKOTE) [address] tablet Take 250 mg by mouth. 2 tabs in morning, 4 tabs at night. 0 9 Active folic acid (FOLVITE) 1 MG tablet Take 1,000 mcg by mouth daily. 0 9 Active zonisamide (ZONEGRAN) 100 MG capsule Take 200 mg by mouth nightly at bedtime. 4 9 Active albuterol 90 mcg/actuation inhaler Inhale 2 puffs into the lungs every 4 (four) hours as needed for shortness of breath/dyspnea or wheezing. 2 Active atorvastatin (LIPITOR) 20 MG tablet Take 20 mg by mouth daily. 0 Active OLANZapine (ZYPREXA) 5 MG tablet Take 5 mg by mouth nightly at bedtime. 1 Active metoprolol succinate (TOPROL-XL) 100 MG 24 hr tablet Take 100 mg by mouth daily. Active terazosin (HYTRIN) 10 MG capsule Take 10 mg by mouth nightly at bedtime. 2 Active XARELTO 20 mg Tab Take 1 tablet by mouth every morning. 4 Active VITAMIN B COMPLEX ORAL Take 1 tablet by mouth daily. Active multivitamin per tablet Take 1 tablet by mouth daily. Active cholecalciferol , vitamin D3, 25 mcg (1,000 unit) capsule Take 1,000 Units by mouth daily. Active aspirin 81 MG EC tablet Take 81 mg by mouth daily. Active Active Problems Problem Noted Date Diagnosed Date Cannabis use, uncomplicated 01/19/2025 Assessment & Plan (01/19/2025 2:16 PM EDT): Cannabis use Cannabis used via bong for anxiolytic effects, particularly pre-sleep. Reports black specks in sputum, denies tobacco use. Alternative methods like edibles were ineffective for him. COLIN (obstructive sleep apnea) 07/05/2024 Assessment & Plan (01/19/2025 2:16 PM EDT): Use of CPAP for sleep apnea CPAP used nocturnally for sleep apnea. He tolerates the machine despite disliking it. Follow-up with sleep specialists satisfactory. Assessment & Plan (08/29/2024 4:11 PM EST): Obstructive sleep apnea managed with BiPAP. Patient reports difficulty using the mask and concerns about dental issues. Recent weight gain noted, which may exacerbate COLIN. Advised weight loss to potentially reduce BiPAP need. Recommended break from BiPAP until dental evaluation and re-evaluation by Sleep Medicine Services. - Take a break from BiPAP until dental evaluation - Schedule re-evaluation with Sleep Medicine Services - Encourage weight loss through diet modification and daily walking - Reassess need for BiPAP after weight loss and dental evaluation Assessment & Plan (07/05/2024 12:47 PM EDT): Encouraged cont with CPAP Sick sinus syndrome 04/23/2024 Assessment & Plan (04/23/2024 8:17 PM EDT): : Reported 4.9 second pause during nuclear stress test and two additional events during sleep while on 24-hour heart monitor. Currently on Metoprolol 100mg twice daily. -Reduce Metoprolol to 100mg once daily. -Discussed with Dr. Doss. Patient seems prone to pauses whether it is drug effect or sleep apnea. He will order a 30 day event monitor and arrange to see him. He is agreeable to halving the metoprolol dose. I do feel he has a potential need for pacemaker. Pleural effusion 04/23/2024 Assessment & Plan (04/25/2025 1:14 PM EDT): Pleural effusion, resolved Complete resolution of left-sided pleural effusion with mild pleural thickening noted on CT scan. No further fluid accumulation observed. Mild pleural thickening may restrict full lung expansion. Assessment & Plan (01/19/2025 2:16 PM EDT): Recurrent pleural effusions Recurrent pleural effusions likely secondary to prior chest wall trauma with five rib fractures. Current ultrasound shows no significant fluid reaccumulation. Breathing is well-managed, no intervention required currently. - Order CT scan in three months to reassess pleural effusion status - Schedule follow-up appointment post-CT scan Assessment & Plan (08/29/2024 4:11 PM EST): Recurrent pleural effusions with prior thoracentesis showing no malignant cells but some eosinophils. Recent CT shows reduced fluid. Differential includes trauma- induced inflammation versus malignancy. Patient prefers observation over VATS as recommended by Dr. Olson. No significant fluid on current exam. Discussed VATS procedure and its role in ruling out malignancy if fluid recurs. - Follow up in four months with ultrasound to check for fluid accumulation - Consider repeat CT scan if fluid is present - Discuss potential need for VATS if fluid recurs Assessment & Plan (07/05/2024 12:47 PM EDT): Recurrent Pleural Effusion Initially thought to be due to inflammation from previous chest trauma. Fluid analysis showed no cancer cells, but chronic inflammation. Patient reports worsening shortness of breath and difficulty walking, suggesting recurrence of effusion. Bedside ultrasound performed which confirms this. -Refer to Interventional Radiology for thoracentesis. Asked to hold eliquis therapy which he hasn't yet started. -Order CT scan post-thoracentesis to assess lung condition. -Refer to thoracic surgeon for evaluation and possible pleurodesis. Assessment & Plan (04/23/2024 8:18 PM EDT): Recurrent left-sided pleural effusion likely related to previous rib fractures. -Refer to radiology for thoracentesis and fluid analysis. 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 Will monitor clinically. Assessment & Plan (04/29/2022 11:32 AM EDT): This does not seem significant on the pulmonary function test flow-volume loop at this time. We will continue to monitor clinically and with PFTs annually. Assessment & Plan (02/23/2022 1:36 PM EDT): We will repeat pulmonary function test to evaluate whether or not he has extrathoracic airway obstruction worsening. Also to see if there is any other pulmonary findings. Rib fractures 12/25/2021 Assessment & Plan (02/23/2022 1:36 PM EDT): Recommend incentive spirometry. Assessment & Plan (12/28/2021 3:59 PM EDT): Rib fractures after fall with significant pain. Admission requested by the ED Oxycodone regular schedule started as well as lidocaine patch. Added Ativan and Celebrex and DuoNebchanged from albuterol MDI on 12/26 Seen by PT Pain much improved on oxycodone Ativan Celebrex lidocaine Anticipated discharge today but patient was significantly somnolent this morning. Placed oxycodone on hold as well as Ativan, Primary osteoarthritis of left hip 08/06/2021 Atrial fibrillation 05/31/2019 Assessment & Plan (05/31/2019 5:10 PM EDT): Patient describes an episode of atrial fibrillation in [facility]. He does not appear to be on any anticoagulation. Of course, we are considering surgery. He most certainly would be at risk for perioperative cardiac complication of atrial fibrillation. I wonder if he should have perioperative clearance from floor care technician at the [facility] so that if he runs into any trouble there he would be known to that group. I do understand that his PCP has referred him to Dr. Kaplan locally. Unfortunately, he had not heard from that Dr. as of yet Physical deconditioning 04/09/2019 Assessment & Plan (04/09/2019 12:51 PM EDT): Agree with exercise regimen. Certainly his recent medical illnesses may have contributed to deconditioning. Shortness of breath 02/09/2019 Assessment & Plan (04/29/2022 11:31 AM EDT): Diminished breath sounds at the bases. Does not have decreased fremitus there. We will just check a chest x-ray with bilateral decubitus to be sure the pleural effusion has not returned. Does have some evidence on the pulmonary function test that he would benefit from bronchodilators. We will try Breo Ellipta. Okay to continue with albuterol as needed. Assessment & Plan (02/23/2022 1:36 PM EDT): Repeat chest x-ray today. Decreased breath sounds, right side. Concern for pneumothorax versus hemothorax given his multiple rib fractures. Assessment & Plan (01/17/2020 2:43 PM EDT): Significant improvement with conditioning and weight loss. Encouraged to continue with this. Assessment & Plan (06/22/2019 4:06 PM EDT): We will consider repeating a methacholine challenge test however it does look at the patient had one Sarah that was normal. We will try a course of steroids to see if his symptoms improve at all. We will do some allergy testing to the patient's question as to whether might be the cause of his dyspnea. Assessment & Plan (05/31/2019 5:08 PM EDT): Symptoms improved with silicone stent before got infected. I do feel excited about the potential of surgical cure. However, I am concerned about surgery so soon after an episode of pneumonia if that is what he really had. Would want him to be at his best for such as surgery. Of course, bronchoscopy on June 09 should not be a problem. Perhaps after that he might take a few weeks to regain his strength and being better condition for thoracic surgery. I would probably want to wait 6 weeks from the last hospitalization at least. Assessment & Plan (04/09/2019 12:52 PM EDT): I do agree with a trial of a silicone stent. It will be a good way to assess whether the tracheal narrowing we saw it is contributing to his dyspnea. I also agree that it is not a good long-term fix given the mucus plugging and possible potential migration of the stent. So, if he does have improvement with a stent progressing to surgery would be the next step. Of course he is in his 70s but seems to be in very good health and active prior to this illness. Assessment & Plan (02/09/2019 1:55 PM EDT): Negative methacholine challenge test. Okay to stop Flovent. Would continue albuterol as needed. Patient advised to take 2 puffs prior to climbing stairs or other major activity. At risk for airway obstruction 02/09/2019 Assessment & Plan (01/17/2020 2:44 PM EDT): Tracheal narrowing. Stable and not amenable to intervention. Will monitor with PFTs when pandemic is over. Assessment & Plan (06/22/2019 4:06 PM EDT): I do think that the narrowing of the trachea has a lot to do with his dyspnea. If surgery is not an option and perhaps we will have to live with this disability. The patient was very unhappy to hear me say that. I will look into whether intermittent balloon dilatation of the airway is a possibility he does not improve with prednisone.if Assessment & Plan (02/09/2019 1:57 PM EDT): To recent intubations 1 of which with self extubation. I suspect he might have some tracheal stenosis and granulation tissue related to the initial intubation. Perhaps a second intubation loosened up something and helped his cough. He could also have had some vocal cord injury as I am sure it was difficult to intubate a patient actively seizing. As such, I have recommended we perform a bronchoscopy to evaluate the vocal cord and major airways. We will also plan a lavage looking for lymphocytosis that would be suggestive of a drug-induced interstitial lung disease. Seizure Assessment & Plan (12/25/2021 3:07 PM EDT): Usual medications ordered His neurologist is at [facility] Myocardial infarction Overview (02/07/2021): seizure related Migraines Hypertensive disorder Assessment & Plan (12/25/2021 3:05 PM EDT): Metoprolol ordered, usual dose Depressive disorder Anxiety Assessment & Plan (12/25/2021 3:05 PM EDT): Usual medication ordered. History of substance abuse Bipolar 1 disorder Immunizations Immunization Administration Dates Next Due INFLUENZA, SPLIT VIRUS, TRIV ALENT W/ PRESERVATIVE IM 06/22/2012,06/17/2011,08/04/2010,10/21 Influenza High-Dose Trivalen t Preservative Free IM 08/14/2019 Novel [id number], Injectable 10/21/2009 Pneumococcal polysaccharide PPSV23 08/05/2011 Td (adult) 5 Lf Tetanus Toxo id, PF, Adsorbed 05/05/2011 Social History Tobacco Use Types Packs/Day Years [...] with a working camera? Not on file Intimate Partner Violence Answer Date R ecorded Are you denied basic needs s uch as food, clothing, or medical care? No 07/06/2024 In the past 12 months have y ou been in a relationship with a person who hurts, threatens, or tries to control you? No 07/06/2024 Are you denied basic needs s uch as food, clothing, or medical care? No 07/06/2024 In the past 12 months have y ou been in a relationship with a person who hurts, threatens, or tries to control you? No 07/06/2024 Sex and Gender Information Value Date Recorded Sex Assigned at Male 12/19/2017 7:28 AM EDT Legal Sex Male 10:08 PM EDT Gender Identity Male 12/19/2017 7:28 AM EDT Sexual Orientation Straight 12/19/2017 7: 28 AM EDT Last Filed Vital Signs Vital Sign Reading Time Taken Comments Blood Pressure 120/58 04/25/2025 10:28 AM EDT Pulse 59 04/25/2025 10:28 AM EDT Temperature 36.4 C (97.5 F) 04/25/2025 10:28 AM EDT Respiratory Rate 20 07/06/2024 1:36 PM EDT Oxygen Saturation 99% 04/25/2025 10:28 AM EDT Inhaled Oxygen Concentration 100% 08/14/2018 1 1:00 AM EST Weight 98.9 kg (218 lb) 05/10/2025 1:22 PM EDT Height 180.3 cm (5' 11 ) 05/10/2025 1:22 PM EDT Body Mass Index 30.4 05/10/2025 1:22 PM EDT Plan of Treatment Upcoming Encounters Date Type Department Care Team (Late st Contact Info) Description 10/05/2025 1:00 PM EST Office Visit [facility] [address] [place] [address] 3rd Floor, [address] [place] [address] Rigoberto Doss MD [address] [place] [address] Health Maintenance Due Date Last Done Comments LIPID PANEL 1946 VALPROIC ACID (DEPAKENE) LEVEL 1946 DEPRESSION SCREENING 1958 HEPATITIS C SCREENING 02/27/1964 COLOGUARD 1991 FIT TEST 1991 FOBT 1991 SIGMOIDOSCOPY 1991 VIRTUAL COLONOSCOPY 1991 RSV VACCINE (1 - 1-dose 75+ series) 2021 Adult Td,Tdap Booster 09/04/2023 09/04/2013, 011 CREATININE LEVEL 04/06/2025 04/06/2024, 11/2022, 12/29/2021, Additional history exists INFLUENZA VACCINE (#1) 2025 , 06/28/2023, 07/20/2022, Additional history exists COVID-19 VACCINE ( season) 2025 07/31/2024, 07/23/2022, 02/07/2022, Additional history exists BLOOD PRESSURE 10/26/2025 04/25/2025 COLONOSCOPY 08/19/2026 01/12/2024, 08/19/2023 COLORECTAL CANCER SCREENING 08/19/2026 PNEUMOCOCCAL VACCINES (50+ years) Completed 12/21/2014, 08/05/2011 ZOSTER VACCINES Completed 02/02/2023, 11/12, 05/23/2020, Additional history exists SMOKING STATUS SCREENING (Once After 26 Yrs) Completed 04/25/2025 HEPATITIS A VACCINES Aged Out No long er eligible based on patient's age to complete this topic HIB VACCINES Aged Out No longer eligi ble based on patient's age to complete this topic MENINGOCOCCAL VACCINES (ACWY) Aged Out No longer eligible based on patient's age to complete this topic MENINGOCOCCAL VACCINES (B) Aged Out N o longer eligible based on patient's age to complete this topic Medical Devices Implanted Type Area Roller Printing Supervisor Device Identifier Shelf Expiration Date Model / Serial / Lot Clip Hemostasis 360deg 235cm Resolution 360 Latex Free 2.8mm Channel Bx/20ea - [id number] Implanted:Qty: 2 on 08/19/2023 by Esdras Cherry MD at [facility] [id number] / / Description:Placed at site o f descending colon polypectomy Procedures Procedure Name Priority Date/Time Associated Diagnosis Comments BASIC METABOLIC PANEL (BMP) STAT 04/06/2024 12:52 PM EDT HM COLONOSCOPY FOR RESULT ENTRY ONLY Routine 01/12/2024 from Last 3 Months or Most Recently Relevant to Health Maintenance Results * Basic metabolic panel (04/06/2024 12:52 PM EDT) SODIUM 139 133 - 146 mmol/L [facility] CHLORIDE 107 96 - 108 mmol/L [facility] POTASSIUM 4.1 3.3 - 5.1 mmol/L [facility] Comment:Specimen slightly he molyzed, result may be falsely elevated. CO2 22 21 - 35 mmol/L [facility] BUN 16 6 - 19 mg/dL [facility] CREATININE 0.70 0.5 - 1.5 mg/dL [facility] GLUCOSE 98 70 - 99 mg/dL [facility] CALCIUM 9.1 8.4 - 10.3 mg/dL [facility] EGFR 94 >59 mL/min/1.7 3m2 [facility] Comment:Estimated glomerular filtration rate calculated using the CKD-EPI refit equation. ANION GAP 14 10 - 20 mmol/L [facility] Blood 04/06/2024 12:5 2 PM EDT 04/06/2024 1:11 PM EDT Tom Maki MD LAB BLOOD BKR ORDERABLES Final Result [facility] [address] [place], [place] [id number] * COLONOSCOPY FOR RESULT ENTRY ONLY (01/12/2024) Pathologist [facility] Colonoscopy External Historical Provider HEALTH MAINTENANCE Final Result from Last 3 Months or Most Recently Relevant to Health Maintenance Insurance MEDICARE PART A & B [facility] MEDICARE SUPPLEMENT MEDICARE PART A & B [facility] MEDICARE SUPPLEMENT MEDICARE PART A & B [facility] MEDICARE SUPPLEMENT MEDICARE PART A & B [facility] MEDICARE SUPPLEMENT MEDICARE PART A & B MEDICARE SUPPLEMENT MEDICARE PART A & B [facility] MEDICARE SUPPLEMENT MEDICARE PART A & B Member Subscriber Plan / Payer (Ef fective 2011-Present) Name:Ttius Khan Member ID:[id number] Relation to Subscriber:Self Name:Titus Khan Subscriber ID:[id number] Payer ID:[id number] Group ID:Not on file Type:Medicare Address: [employer] [address] MEDICARE SUPPLEMENT MEDICARE PART A & B Member Subscriber Plan / Payer (Ef fective 2011-Present) Name:Titus Khan Member ID:[id number] Relation to Subscriber:Self Name:Titus Khan Subscriber ID:[id number] Payer ID:[id number] Group ID:Not on file Type:Medicare Address: [employer] [address] [place] [id number] [place] [address] MEDICARE SUPPLEMENT MEDICARE PART A & B [facility] MEDICARE SUPPLEMENT Advance Directives For more information, please contact: [phone] (9AM - 5PM [place], Wednesday-Wednesday) * Full Code (Latest Code Status on File) Date Activated Date Inactivated Comments 12/25/2021 2:42 PM Question Answer Comments Code Status Confirmed With: Patient Care Teams Senior Regulatory Affairs Specialist Relationship Specialty Start Date End Date Scott Finley MD [address] [place] [id number] [email or web address] PCP - General Internal Medicine 04/21/24 Natasha Brand NP [address] [place] [address] [email or web address] LMR Provider 08/01/17 Additional Source Comments The information contained in this document represents components of the legal health record. It is not the complete legal health record.[facility]
--- OUTSIDE RECORDS SUMMARY | 2025-08-30 20:19 | XMS_ITS | Encounter Summary ---
Author Organization [facility] Address [address] [place] [address] Phone Care Team Providers Care Stripper Cutter Machine Name Role Phone Natasha Brand NP Unavailable [phone] Scott Finley MD Primary Care Provider [phone] Scott Finley MD Primary Care Provider + Encounter Details Date Type Department Care Team (Late st Contact Info) Description 03/21/2024 Procedure Pass [facility], Ct Scan - [address] [address] Social History Tobacco Use Types Packs/Day Years [...] Description 10/05/2025 1:00 PM EST Office Visit [facility] [address], [address] [place] [address] Rigoberto Doss MD [address] [place] [address] documented as of this encounter Visit Diagnoses Not on filedocumented in this encounter Care Teams Stripper Cutter Machine Relationship Specialty Start Date End Date Scott Finley MD [address] [place] [address] [email or web address] PCP - General Internal Medicine 03/28/18 04/20/24 Scott Finley MD [address] [place] [address] [email or web address] PCP - General Internal Medicine 04/21/24 Natasha Brand NP [address] [place] [address] [email or web address] Provider 08/01/17 documented as of this encounter Additional Source Comments The information contained in this document represents components of the legal health record. It is not the complete legal health record.[facility]
--- OUTSIDE RECORDS SUMMARY | 2025-08-30 20:19 | XMS_ITS | Encounter Summary ---
Author Organization [facility] Address [address] [place] [address] Phone Care Team Providers Care Quarry Supervisor Dimension Stone Name Role Phone Natasha Brand NP Unavailable [phone] Scott Finley MD Primary Care Provider [phone] Encounter Details Date Type Department Care Team (Late Contact Info) Description 04/27/2024 Procedure Pass [facility] Cardiovascular And Interventional Radiology [address] [place] [address] Social History Tobacco Use Types Packs/Day Years [...] Description 10/05/2025 1:00 PM EST Office Visit [facility] [address] 3rd Floor, [address] [place] [address] Rigoberto Doss MD [address] [place] [address] [email or web address] documented as of this encounter Visit Diagnoses Not on filedocumented in this encounter Care Teams Quarry Supervisor Dimension Stone Relationship Specialty Start Date End Date Scott Finley MD [address] [place] [address] [email or web address] PCP - General Internal Medicine 04/21/24 Natasha Brand NP [address] [place] [address] [email or web address] Provider 08/01/17 documented as of this encounter Additional Source Comments The information contained in this document represents components of the legal health record. It is not the complete legal health record.[facility]
--- OUTSIDE RECORDS SUMMARY | 2025-08-30 20:19 | XMS_ITS | Encounter Summary ---
Author Organization [facility] Address [address] [facility] [address] [place] [address] Phone Care Team Providers Care Director Non Profit Name Role Phone Natasha Brand NP Unavailable [phone] Jerry Singh MD Unavailable [phone] Scott Finley MD Primary Care Provider [phone] Scott Finley MD Primary Care Provider [phone] Reason for Referral * MRI/CAT Scan - Closed Specialty Diagnoses / Procedures Referred By Contac t Referred To Contact Radiology Diagnoses Lumbar radiculopathy Procedures MRI Lumbar Spine Matt Lyons DO Phone: tel: fax: mailto:[email or web address] Referral ID Status Reason Start Date Expiration Date Visits Re quested Visits Authorized [id number] Closed 12/01/2018 12/01/2019 1 1 Encounter Details Date Type Department Care Team (Latest Contact Info) Description 12/01/2018 Ancillary Orders Virtual Department 30 [place] [address] Matt Lyons DO 6 [place] [address] [email or web address] Social History Tobacco Use Types Packs/Day Years [...] Description 10/05/2025 1:00 PM EST Office Visit [facility] [address] [place] [address] 3rd Floor, [address] [place] [address] Rigoberto Doss MD [address] [place] [address] [email or web address] documented as of this encounter Results * MRI LUMBAR SPINE (NEURO) WITHOUT CONTRAST (12/13/2018 1:34 PM EST) Anatomical Region Laterality Modality L-spine Magnetic Resonan ce 12/13/2018 1:46 PM EST Impressions 12/13/2018 4:46 PM EST 1. New small broad-based central disc protrusion at L2-3 and mild increase in generalized disc bulging at L3-4. Otherwise stable advanced multilevel degenerative changes outlined above. 2. Recommend left renal ultrasound for a possible small left midpole renal mass versus cyst. POS - [id number] Narrative 12/13/2018 4:46 PM EST COMPARISON: 11/09/2012. TECHNIQUE: Exam performed on a 1.5 Gisela high-field MRI scanner. Sagittal T1, T2 and STIR, axial T1 and T2 sequences were obtained. MRI LUMBAR SPINE FINDINGS: Normal lordosis. Stable grade 1 spondylolisthesis of L4 measuring 3 mm, diffuse spondylosis with multilevel mild anterior wedging, endplate osteophytes and disc space narrowing which is of moderate degree at L5-S1. Congenitally shortened lumbar spine pedicles. No compression fracture deformities. No bone marrow lesions. Conus terminates at L1. Additional findings: Incompletely imaged is a new small mildly T2 hyperintense lesion in the lateral left mid renal pole cortex on the axial images which may represent a cyst. L1-L2: Stable generalized disc bulging with mild facet arthropathy and ligamentum flavum hypertrophy. L2-L3: Stable generalized disc bulge with a new small broadbase central disc protrusion component with mild facet arthropathy and ligamentum flavum hypertrophy. L3-L4: Increase in generalized disc bulging. Stable moderate facet arthropathy and ligamentum flavum hypertrophy. Stable mild canal stenosis due to disc disease and shortened pedicles and moderate bilateral neural foraminal stenosis due to spondylosis. L4-L5: Stable grade 1 spondylolisthesis, generalized disc bulging with severe facet arthropathy and ligamentum flavum hypertrophy. Stable severe bilateral lateral recess and canal stenosis due to degenerative changes and shorten pedicles. Stable severe bilateral neural foraminal stenosis and L4 nerve root compression due to spondylosis changes. L5-S1: Stable small generalized disc osteophyte complex with moderate facet arthropathy and moderate bilateral neural foraminal stenosis due to spondylosis. Laminectomy changes again noted in posterior paraspinal soft tissue scarring. Procedure Note Vandana Weber MD - 12/13/2018 COMPARISON: 11/09/2012. TECHNIQUE: Exam performed on a 1.5 Gisela high-field MRI scanner. SagittalT1, T2 and STIR, axial T1 and T2 sequences were obtained. MRI LUMBAR SPINE FINDINGS: Normal lordosis. Stable grade 1 spondylolisthesis of L4 measuring 3 mm,diffuse spondylosis with multilevel mild anterior wedging, endplateosteophytes and disc space narrowing which is of moderate degree at L5-S1.Congenitally shortened lumbar spine pedicles. No compression fracturedeformities. No bone marrow lesions. Conus terminates at L1. Additional findings: Incompletely imaged is a new small mildly [id number] lesion in the lateral left mid renal pole cortex on the axialimages which may represent a cyst. L1-L2: Stable generalized disc bulging with mild facet arthropathy andligamentum flavum hypertrophy. L2-L3: Stable generalized disc bulge with a new small broadbase centraldisc protrusion component with mild facet arthropathy and ligamentumflavum hypertrophy. L3-L4: Increase in generalized disc bulging. Stable moderate facetarthropathy and ligamentum flavum hypertrophy. Stable mild canal stenosisdue to disc disease and shortened pedicles and moderate bilateral neuralforaminal stenosis due to spondylosis. L4-L5: Stable grade 1 spondylolisthesis, generalized disc bulging withsevere facet arthropathy and ligamentum flavum hypertrophy. Stable severebilateral lateral recess and canal stenosis due to degenerative changesand shorten pedicles. Stable severe bilateral neural foraminal stenosisand L4 nerve root compression due to spondylosis changes. L5-S1: Stable small generalized disc osteophyte complex with moderatefacet arthropathy and moderate bilateral neural foraminal stenosis due tospondylosis. Laminectomy changes again noted in posterior paraspinal softtissue scarring. IMPRESSION: 1. New small broad-based central disc protrusion at L2-3 and mildincrease in generalized disc bulging at L3-4. Otherwise stable advancedmultilevel degenerative changes outlined above. 2. Recommend left renal ultrasound for a possible small left midpolerenal mass versus cyst. POS - [id number] Matt Lyons DO IMG MR XSPECIALTY Final Resu lt documented in this encounter Visit Diagnoses Diagnosis Lumbar radiculopathy Thoracic or lumbosacral neuritis or radiculitis, unspecified Lumbar radiculopathy Thoracic or lumbosacral neuritis or radiculitis, unspecified documented in this encounter Additional Health Concerns Infection Onset Date Last Indicated Resolved Time CoV-Risk 04/03/2020 04/04/2020 04/17/2020 1:23 AM EDT documented as of this encounter Care Teams Director Non Profit Relationship Specialty Start Date End Date Scott Finley MD [address] [place] [address], [facility] [address] [place] [address] [email or web address] PCP - General Internal Medicine 03/28/18 04/20/24 Scott Finley MD [address] [place] [address] PCP - General Internal Medicine 04/21/24 Natasha Brand NP 179 [place] [address] [email or web address] Historical LMR Provider 08/01/17 Jerry Singh MD [address] [facility] 301 [place] [address] Historical LMR Provider 08/01/17 10/18/21 documented as of this encounter Additional Source Comments The information contained in this document represents components of the legal health record. It is not the complete legal health record.[facility]
--- OUTSIDE RECORDS SUMMARY | 2025-08-30 20:19 | XMS_ITS | Encounter Summary ---
Author Organization [facility] Address [address] [facility] [address] [place] [address] Phone Care Team Providers Care Studio Producer Name Role Phone Natasha Brand NP Unavailable [phone] Scott Finley MD Primary Care Provider [phone] Scott Finley MD Primary Care Provider [phone] Encounter Details Date Type Department Care Team (Late st Contact Info) Description 04/06/2024 Procedure Pass Non-Invasive Cardiology 30 [place] [address] Social History Tobacco Use Types Packs/Day Years [...] Date of Assessment Author No Risk Indicated 04/06/2024 12:07 PM EDT Josie Macias, RN * Emmet Suicide Severity Rating Scale (Screener/Recent Self-Report) Question Answer Date of Assessment Author 1. Wish to be (Past 1 Month) No 024 12:07 PM EDT Josie Winter, RN 2. Non-Specific Active Suici rell Thoughts (Past 1 Month) No 04/06/2024 12:07 PM EDT Yaz Winter RN 6. Suicidal Behavior (Lifetime) No 12:07 PM EDT Josie Winter, RN documented as of this encounter Plan of Treatment Upcoming Encounters Date Type Department Care Team (Late st Contact Info) Description 10/05/2025 1:00 PM EST Office Visit [facility] [address] [place] [address] 3rd Floor, [address] [place] [address] Rigoberto Doss MD [address] [place] [address] [email or web address] documented as of this encounter Visit Diagnoses Not on filedocumented in this encounter Care Teams Studio Producer Relationship Specialty Start Date End Date Scott Finley MD 179 [place] [address] PCP - General Internal Medicine 03/28/18 04/20/24 Scott Finley MD 238 [place] [address] PCP - General Internal Medicine 04/21/24 Natasha Brand NP [address] [place] [address] [email or web address] Historical LMR Provider 08/01/17 documented as of this encounter Additional Source Comments The information contained in this document represents components of the legal health record. It is not the complete legal health record.[facility]
--- OUTSIDE RECORDS SUMMARY | 2025-08-30 20:19 | XMS_ITS | Encounter Summary ---
Author Organization [facility] Address [address] [facility] [address] [place] [address] Phone Care Team Providers Care Football Scout Name Role Phone Natasha Brand NP Unavailable [phone] Scott Finley MD Primary Care Provider [phone] Encounter Details Date Type Department Care Team (Late st Contact Info) Description 04/25/2025 Procedure Pass [facility], [address] [address] Social History Tobacco Use Types Packs/Day Years [...] Description 10/05/2025 1:00 PM EST Office Visit [facility] [address] [place] [address] 3rd Floor, [address] [place] [address] Rigoberto Doss MD [address] [place] [address] [email or web address] documented as of this encounter Visit Diagnoses Not on filedocumented in this encounter Care Teams Football Scout Relationship Specialty Start Date End Date Scott Finley MD 238 [place] [address] [email or web address] PCP - General Internal Medicine 04/21/24 Natasha Brand NP [address] [place] [address] [email or web address] Historical LMR Provider 08/01/17 documented as of this encounter Additional Source Comments The information contained in this document represents components of the legal health record. It is not the complete legal health record.[facility]
--- OUTSIDE RECORDS SUMMARY | 2025-08-30 20:19 | XMS_ITS | Encounter Summary ---
Author Organization [facility] Address [address] [facility] [address] [place] [address] Phone Care Team Providers Care Cream Dumper Name Role Phone Natasha Brand NP Unavailable [phone] Jerry Singh MD Unavailable [phone] Scott Finley MD Primary Care Provider [phone] Scott Finley MD Primary Care Provider + Encounter Details Date Type Department Care Team (Late st Contact Info) Description 02/28/2019 Procedure Pass [facility] Endoscopy Admitting Dept Virtual Department 30 [place] [address] Social History Tobacco Use Types Packs/Day Years [...] Description 10/05/2025 1:00 PM EST Office Visit [facility] [address] [place] [address] 3rd Floor, [address] [place] [address] Rigoberto Doss MD [address] [place] [address] documented as of this encounter Visit Diagnoses Not on filedocumented in this encounter Additional Health Concerns Infection Onset Date Last Indicated Resolved Time CoV-Risk 04/03/2020 04/04/2020 04/17/2020 1:23 AM EDT documented as of this encounter Care Teams Cream Dumper Relationship Specialty Start Date End Date Scott Finley MD [address] [address] [email or web address] PCP - General Internal Medicine 03/28/18 04/20/24 Scott Finley MD [address] [place] [address] [email or web address] PCP - General Internal Medicine 04/21/24 Natasha Brand NP [address] [place] [address] [email or web address] Historical LMR Provider 08/01/17 Jerry Singh MD [address] [place] [address] [email or web address] Historical LMR Provider 08/01/17 10/18/21 documented as of this encounter Additional Source Comments The information contained in this document represents components of the legal health record. It is not the complete legal health record.[facility]
--- OUTSIDE RECORDS SUMMARY | 2025-08-30 20:19 | XMS_ITS | Encounter Summary ---
Author Organization [facility] Address [address] [facility] [address] [place] [address] Phone Care Team Providers Care Tong Hooker Name Role Phone Natasha Brand NP Unavailable [phone] Jerry Singh MD Unavailable [phone] Scott Finley MD Primary Care Provider + Scott Finley MD Primary Care Provider + Encounter Details Date Type Department Care Team (Late st Contact Info) Description 12/01/2018 Procedure Pass [facility], [address] [address] Social History Tobacco Use Types Packs/Day Years [...] Description 10/05/2025 1:00 PM EST Office Visit [facility] [address] [place] [address] 3rd Floor, [address] [place] [address] Rigoberto Doss MD [address] [place] [address] documented as of this encounter Visit Diagnoses Not on filedocumented in this encounter Additional Health Concerns Infection Onset Date Last Indicated Resolved Time CoV-Risk 04/03/2020 04/04/2020 04/17/2020 1:23 AM EDT documented as of this encounter Care Teams Tong Hooker Relationship Specialty Start Date End Date Scott Finley MD [address] [address] [email or web address] PCP - General Internal Medicine 03/28/18 04/20/24 Scott Finley MD [address] [place] [address] [email or web address] PCP - General Internal Medicine 04/21/24 Natasha Brand NP [address] [place] [address] [email or web address] Historical [email or web address] Provider 08/01/17 Jerry Singh MD [address] [place] [address] [email or web address] Historical LMR Provider 08/01/17 10/18/21 documented as of this encounter Additional Source Comments The information contained in this document represents components of the legal health record. It is not the complete legal health record.[facility]
--- OUTSIDE RECORDS SUMMARY | 2025-08-30 20:19 | XMS_ITS | Encounter Summary ---
Author Organization [facility] Address [address] [facility] [address] [place] [address] Phone Care Team Providers Care Plug Wirer Name Role Phone Natasha Brand NP Unavailable [phone] Scott Finley MD Primary Care Provider [phone] Encounter Details Date Type Department Care Team (Late st Contact Info) Description 07/05/2024 Procedure Pass [facility], Ct Scan - [address] [address] Social History Tobacco Use Types Packs/Day Years [...] Description 10/05/2025 1:00 PM EST Office Visit [facility] [address] [place] [address] 3rd Floor, [address] [place] [address] Rigoberto Doss MD [address] [place] [address] [email or web address] documented as of this encounter Visit Diagnoses Not on filedocumented in this encounter Care Teams Plug Wirer Relationship Specialty Start Date End Date Scott Finley MD 238 [place] [address] [email or web address] PCP - General Internal Medicine 04/21/24 Natasha Brand NP [address] [place] [address] [email or web address] Historical LMR Provider 08/01/17 documented as of this encounter Additional Source Comments The information contained in this document represents components of the legal health record. It is not the complete legal health record.[facility]
--- OUTSIDE RECORDS SUMMARY | 2025-08-30 20:19 | XMS_ITS | Encounter Summary ---
Author Organization [facility] Address [address] [facility] [address] [place] [address] Phone Care Team Providers Care Sole Polisher Name Role Phone Natsaha Brand NP Unavailable [phone] Jerry Singh MD Unavailable [phone] Scott Finley MD Primary Care Provider [phone] Scott Finley MD Primary Care Provider [phone] Encounter Details Date Type Department Care Team (Late st Contact Info) Description 10/19/2018 Ancillary Orders [facility], X-Ray - [address] [address] Radha Arias NP [address] [place] [phone] [email or web address] Pain in left hip Social History Tobacco Use Types Packs/Day Years [...] Description 10/05/2025 1:00 PM EST Office Visit [facility] [address] [place] [address] 3rd Floor, [address] [place] [address] Rigoberto Doss MD [address] [place] [address] [email or web address] documented as of this encounter Results * XR HIP 2 VW LEFT PLUS PELVIS (10/19/2018 4:27 PM EST) Anatomical Region Laterality Modality Hip, Pelvis Radiographic Luisa ging 10/19/2018 4:43 PM EST Impressions 10/19/2018 4:46 PM EST No significant changes from 12/01/2017. POS - [id number] Narrative 10/19/2018 4:46 PM EST HISTORY: Left hip pain COMPARISON: AP view the pelvis and right hip x-ray 12/01/2017. VIEWS: AP view the pelvis and AP and lateral views of left hip. FINDINGS: Similar deformities at the junctions of the femoral heads and necks as demonstrated on 12/01/2017. Bilateral hip joint space narrowing and marginal spurring is stable. No flattening of the femoral heads. No fractures, subluxations or dislocations. No suspicious lucencies or areas of sclerosis within the bones. Mild sclerosis adjacent to the SI joints stable. Stable sclerosis at the pubic symphysis. Procedure Note Pee Oakley MD - 10/19/2018 HISTORY: Left hip pain COMPARISON: AP view the pelvis and right hip x-ray 12/01/2017. VIEWS: AP view the pelvis and AP and lateral views of left hip. FINDINGS: Similar deformities at the junctions of the femoral heads and necks asdemonstrated on 12/01/2017. Bilateral hip joint space narrowing andmarginal spurring is stable. No flattening of the femoral heads. Nofractures, subluxations or dislocations. No suspicious lucencies or areasof sclerosis within the bones. Mild sclerosis adjacent to the SI jointsstable. Stable sclerosis at the pubic symphysis. IMPRESSION: No significant changes from 12/01/2017. POS - [id number] us Radha Arias COMMERCIAL FINANCE MANAGER IMG XR PELVIS Final Result documented in this encounter Visit Diagnoses Diagnosis Pain in left hip Pain in left hip documented in this encounter Additional Health Concerns Infection Onset Date Last Indicated Resolved Time CoV-Risk 04/03/2020 04/04/2020 04/17/2020 1:23 AM EDT documented as of this encounter Care Teams Sole Polisher Relationship Specialty Start Date End Date Scott Finley MD [address] [address] [email or web address] PCP - General Internal Medicine 03/28/18 04/20/24 Scott Finley MD [address] [place] [address] [email or web address] PCP - General Internal Medicine 04/21/24 Natasha Brand NP [address] [place] [address] [email or web address] Historical [email or web address] Provider 08/01/17 Jerry Singh MD [address] [place] [address] [email or web address] Historical LMR Provider 08/01/17 10/18/21 documented as of this encounter Additional Source Comments The information contained in this document represents components of the legal health record. It is not the complete legal health record.[facility]
--- OUTSIDE RECORDS SUMMARY | 2025-08-30 20:19 | XMS_ITS | Encounter Summary ---
Author Organization [facility] Address [address] [facility] [address] [place] [address] Phone Care Team Providers Care Nutrition Professor Name Role Phone Natasha Brand NP Unavailable [phone] Scott Finley MD Primary Care Provider [phone] Encounter Details Date Type Department Care Team (Late st Contact Info) Description 07/06/2024 Procedure Pass [facility] 30 [place] [address] Social History Tobacco Use Types Packs/Day Years [...] Description 10/05/2025 1:00 PM EST Office Visit [facility] [address] [place] [address] 3rd Floor, [address] [place] [address] Rigoberto Doss MD 50 [place] [address] [email or web address] documented as of this encounter Visit Diagnoses Not on filedocumented in this encounter Care Teams Nutrition Professor Relationship Specialty Start Date End Date Scott Finley MD [address] [place] [address] PCP - General Internal Medicine 04/21/24 Natasha Brand NP 179 [place] [address] .[email or web address] Historical LMR Provider 08/01/17 documented as of this encounter Additional Source Comments The information contained in this document represents components of the legal health record. It is not the complete legal health record.[facility]
--- OUTSIDE RECORDS SUMMARY | 2025-08-30 20:19 | XMS_ITS | Encounter Summary ---
Author Organization [facility] Address [address] [facility] [address] [place] [address] Phone Care Team Providers Care Statistical Reporting Analyst Name Role Phone Natasha Brand NP Unavailable [phone] Scott Finley MD Primary Care Provider [phone] Encounter Details Date Type Department Care Team (Late st Contact Info) Description 04/25/2025 Procedure Pass [facility] 30 [place] [address] Social History Tobacco Use Types Packs/Day Years [...] Description 10/05/2025 1:00 PM EST Office Visit [facility] [address] [place] [address] 3rd Floor, [address] [place] [address] Rgioberto Doss MD 50 [place] [address] [email or web address] documented as of this encounter Visit Diagnoses Not on filedocumented in this encounter Care Teams Statistical Reporting Analyst Relationship Specialty Start Date End Date Scott Finley MD 238 [place] [address] PCP - General Internal Medicine 04/21/24 Natasha Brand NP 179 [place] [address] Historical LMR Provider 08/01/17 documented as of this encounter Additional Source Comments The information contained in this document represents components of the legal health record. It is not the complete legal health record.[facility]
--- OUTSIDE RECORDS SUMMARY | 2025-08-30 20:19 | XMS_ITS | Encounter Summary ---
Author Organization [facility] Address [address] [place] [address] Phone Care Team Providers Care Banking Consultant Name Role Phone Natasha Brand ROCK BREAKER Unavailable [phone] Scott Finley MD Primary Care Provider [phone] Scott Finley MD Primary Care Provider [phone] Encounter Details Date Type Department Care Team (Late st Contact Info) Description 02/16/2022 Transcribe Orders Virtual Department [address] [place] [address] Natasha Brand NP [address] [place] [address] [email or web address] Dyspnea, unspecified type (Primary Dx) Social History Tobacco Use Types [...] Description 10/05/2025 1:00 PM EST Office Visit [facility] [address] 3rd Floor, [address] [place] [address] Rigoberto Doss MD [address] [place] [address] [email or web address] documented as of this encounter Results * Pulmonary Function Test Reason for Exam: Dyspnea/Shortness of Breath; Type of PFT Test: Spirometry with bronchodilator, DLCO, Lung Volumes; Performing Location: [facility] (04/03/2022 11:25 AM EDT) FEV1 2.06 liters FVC 2.93 liters FEV1/FVC 70 % TLC 5.94 liters DLCO 89 ml/mmHg sec Anatomical Region Laterality Modality Other Impressions 04/03/2022 11:25 AM EDT PULMONARY FUNCTION STUDIES Pulmonary function studies were performed on this 77 y.o. male for evaluation of shortness of breath. Review of the medical record reveals that the patient is a never tobacco smoker and current smoker of marijuana. Prior pulmonary function studies are available for comparison. SPIROMETRY: The FEV1 is mildly impaired at 2.06 L or 73% predicted. The FVC is moderately impaired at 2.93 L or 67% predicted. The FEV1/FVC ratio is normal at 70%. After the administration of a bronchodilator agent, there is a near-significant increase in FEV1. FLOW-VOLUME LOOPS: Evaluation of the flow-volume loops reveals normal morphology of the inspiratory limb with mild scooping of the expiratory limb. LUNG VOLUME MEASUREMENTS BY PLETHYSMOGRAPHY: The total lung capacity is normal at 5.94 L or 89% predicted. The functional residual capacity is normal at 3.21 L or 87% predicted. Of note, the ERV is markedly impaired, likely representing the imprint of body habitus. DIFFUSION CAPACITY: The diffusion capacity is mildly impaired at 17.3 mL/mmHg sec or 79% predicted. This corrects to normal when adjusted for alveolar volume. Resting oxygen saturation is 96% on room air. IMPRESSION: No overt obstructive physiology on spirometry, though, there is mild scooping of the expiratory limb which normalizes post-bronchodilator. There is also a near-significant post-bronchodilator improvement in FEV1. These findings can be suggestive of reactive airways disease (though, patient had a negative methacholine challenge test in 01/2019). Normal lung volumes with the exception of an impaired ERV which likely represents the imprint of body habitus. Mildly impaired diffusion capacity which can be secondary to anemia, emphysema, pulmonary vascular disease, interstitial lung disease, pulmonary edema, and/or body habitus. COMPARISON TO PRIOR STUDIES: When comparing to prior study from 10/13/2018, there has been an interval decline of FEV1, FVC, and DLCO. us Natasha Brand ROCK BREAKER PFT ORDERABLES Final Result documented in this encounter Visit Diagnoses Diagnosis Dyspnea, unspecified type- Primary Dyspnea, unspecified type documented in this encounter Care Teams Banking Consultant Relationship Specialty Start Date End Date Scott Finley MD [address] [place] [address] [email or web address] PCP - General Internal Medicine 03/28/18 04/20/24 Scott Finley MD [address] [place] [address] PCP - General Internal Medicine 04/21/24 Natasha Brand NP [address] [place] [address] [email or web address] Historical LMR Provider 08/01/17 documented as of this encounter Additional Source Comments The information contained in this document represents components of the legal health record. It is not the complete legal health record.[facility]
--- OUTSIDE RECORDS SUMMARY | 2025-08-30 20:19 | XMS_ITS | Encounter Summary ---
Author Organization [facility] Address [address] [facility] [address] [place] [address] Phone Care Team Providers Care Birth Certificate Clerk Name Role Phone Natasha Brand NP Unavailable [phone] Scott Finley MD Primary Care Provider [phone] Encounter Details Date Type Department Care Team (Late st Contact Info) Description 01/19/2025 Procedure Pass [facility], Ct Scan - [address] [address] Social History Tobacco Use Types Packs/Day Years [...] Description 10/05/2025 1:00 PM EST Office Visit [facility] [address] [place] [address] [address]rd Floor, [address] [place] [address] Rigoberto Doss MD [address] [place] [address] [email or web address] documented as of this encounter Visit Diagnoses Not on filedocumented in this encounter Care Teams Birth Certificate Clerk Relationship Specialty Start Date End Date Scott Finley MD [address] [place] [address] [email or web address] PCP - General Internal Medicine 04/21/24 Natasha Brand NP [address] [place] [address] [email or web address] Historical LMR Provider 08/01/17 documented as of this encounter Additional Source Comments The information contained in this document represents components of the legal health record. It is not the complete legal health record.[facility]
--- OUTSIDE RECORDS SUMMARY | 2025-08-30 20:19 | XMS_ITS | Encounter Summary ---
Author Organization [facility] Address [address] [place] [address] Phone Care Team Providers Care Multiple Drum Sander Helper Name Role Phone Natasha Brand NP Unavailable [phone] Jerry Singh MD Unavailable [phone] Scott Finley MD Primary Care Provider [phone] Scott Finley MD Primary Care Provider [phone] Encounter Details Date Type Department Care Team (Late st Contact Info) Description 01/10/2019 Transcribe Orders [facility] [address] [place] [address] Natasha Brand NP [address] [place] [address] [email or web address] Dyspnea, unspecified type (Primary Dx) Social History [...] Description 10/05/2025 1:00 PM EST Office Visit [facility] [address] [facility] [address] [facility] 3rd Floor, [address] [place] [address] Rigoberto Doss MD [address] [place] [address] [email or web address] documented as of this encounter Results * Pulmonary Function Test Reason for Exam: Other (specify) (dyspnea); Type of PFT Test: Spirometry with bronchodilator; Performing Location: [facility] (01/11/2019 9:34 AM EDT) FEV1 liters FVC liters FEV1/FVC % TLC liters DLCO ml/mmHg sec Anatomical Region Laterality Modality Other Impressions 01/11/2019 9:34 AM EDT METHACHOLINE CHALLENGE TESTING A standard methacholine challenge study was performed according to ATS criteria on this 73 y.o. year-old male for evaluation of shortness of breath. TECHNIQUE: After measurements of baseline spirometry, serial spirometry measurements were performed with the intervening administration of serially increasing doses of methacholine. RESULTS: Baseline spirometry is normal. After the administration of serially increasing doses of methacholine, no significant change noted in spirometry nor flow volume in the pattern. Patient reported chest tightness that resolved following bronchodilator administration. PC-20 not met. IMPRESSION: Negative methacholine bronchoprovocation challenge testing. Given high negative predictive value, testing would not support a diagnosis of reactive airway disease. us Provider Not In System PhD PFT ORDERABLES Final Result documented in this encounter Visit Diagnoses Diagnosis Dyspnea, unspecified type- Primary Dyspnea, unspecified type documented in this encounter Additional Health Concerns Infection Onset Date Last Indicated Resolved Time CoV-Risk 04/03/2020 04/04/2020 04/17/2020 1:23 AM EDT documented as of this encounter Care Teams Multiple Drum Sander Helper Relationship Specialty Start Date End Date Scott Finley MD [address] [place] [address], [address] [place] [address] [email or web address] PCP - General Internal Medicine 03/28/18 04/20/24 Scott Finley MD [address] [place] [id number] [email or web address] PCP - General Internal Medicine 04/21/24 Natasha Brand NP [address] [place] [address] [email or web address] 08/01/17 Jerry Singh MD [address] [address] [email or web address] Historical LMR Provider 08/01/17 10/18/21 documented as of this encounter Additional Source Comments The information contained in this document represents components of the legal health record. It is not the complete legal health record.[facility]
== END 2025-08-30 09:48 | disposition home or self-care (01) ==
LOC: HO.LAB 09:47
PROVIDERS: PCP Nurse Practitioner; Visit Provider Urology
DX: N32.81 Overactive bladder (principal); R35.1 Nocturia; R39.12 Poor urinary stream; Z79.899 Other long term (current) drug therapy; N39.0 Urinary tract infection, site not specified
CPT/HCPCS: 51798; 87086; 87088; 87186; 99212

== ENCOUNTER 2025-08-30 09:47 | Outpatient (AMB) | payer MEDICARE, SELFPAY ==
--- NOTE | 2025-08-30 09:53 | MHC.OFFVIS ---
Intake Visit Reasons: 6-month follow-up PVR and UA office Intake Note: Patient is present for 6M F/U patient does not feel like medication is helping much still c/o ocassional Dysuria and frequent urination Urology Medication:TERAZOSIN, Antibiotic Allergy:NONE Blood Thinner:NONE PVR:0 mls General Forecaster Required: No Accompanied by: Self / Same As Patient Allergies No Known Allergies Allergy (Verified 08/30/25 09:54) HPI Comments Details: Titus is a pleasant male. He is a patient of Dr. Brand. He seen for the following urologic conditions - lower urinary tract symptoms - postvoid dribbling - overactive bladder Six-month follow-up Overactive bladder UA normal does have occasional burning Current medications include terazosin 10 mg Using pad Occasional accidents Recently nocturia reoccurring 1-2 X per night Recommend decreasing fluid intake within 3 hours of bed Over 76. 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 Lower urinary tract symptoms Longstanding with weakness of stream, urinary urgency and frequency with nocturia Current therapy combination therapy with terazosin 10 mg Prior therapy terazosin 5 mg PSA 04/30 0.6 Cystoscopy 05/3121 grade 2 trabeculation with enlarged capacity - 02/0124 grade 2 trabeculation with small diverticula Symptoms consistent with combination overactive bladder and stiff prostate [facility] Medical History Asthma Bipolar 1 disorder Chronic obstructive lung disease Atrial fibrillation Angina pectoris BPH (benign prostatic hyperplasia) Review of Systems Const Denies chills and Denies fever(s) Card Reports no additional complaints and Denies syncope Resp Denies cough GI Denies abdominal pain and Denies heartburn Reports as per HPI and Denies change in libido Neuro Denies syncope Psych Denies change in libido Endo Denies change in libido Physical Exam Const General: cooperative, healthy appearing, comfortable and no acute distress Orientation/consciousness: patient oriented x3 HEENT Face and sinus: Yes normal facial exam Mouth: moist mucous membranes Neck Neck: Yes normal visual inspection, Yes full ROM and Yes trachea midline Chest Chest palpation & inspection: normal inspection of the chest Resp Effort & Inspection: normal respiratory effort, able to speak in complete sentences and no respiratory distress GI Inspection: Yes normal to inspection Back/Spine/Pelvis Cervical Spine: normal cervical lordosis Thoracic/Lumbar Spine: thoracic and lumbar spine normal to inspection Skin General skin exam: no rashes or lesions noted Neuro General: patient oriented x3, gait normal, tone normal and moves all extremities Extrem General: Yes normal to inspection and Yes capillary refill normal Office Procedures Post Void Residual Post Residual Void Post Void Residual (PVR): 0 17460-Egch Void Residual by ultrasound Results AMB Urinalysis, Automated UA Leukoctes 0 Jason/uL Last Edit by Miguelina Campbell [facility] on 08/30/25 09:55 UA Nitrite Negative Last Edit by Miguelina Campbell [facility] on 08/30/25 09:55 UA Urobilinogen 0.2 mg/dL Last Edit by Miguelina Campbell [facility] on 08/30/25 09:55 UA Protein 15 mg/dL Last Edit by Miguelina Campbell [facility] on 08/30/25 09:55 UA pH 6.5 Last Edit by Miguelina Campbell [facility] on 08/30/25 09:55 UA Blood 10 Gagan/uL Last Edit by Miguelina Campbell [facility] on 08/30/25 09:55 UA Specific [place] 1.015 Last Edit by Miguelina Campbell [facility] on 08/30/25 09:55 UA Ketone Negative Last Edit by Miguelina Campbell [facility] on 08/30/25 09:55 UA Bilirubin 0 mg/dL Last Edit by Miguelina Campbell [facility] on 08/30/25 09:55 UA Glucose 0 mg/dL Last Edit by Miguelina Campbell [facility] on 08/30/25 09:55 Results Reviewed Results Reviewed: Laboratory Last Values Urine pH (Auto) 6.5 08/30/25 09:54 Specific [place] (Auto) 1.015 08/30/25 09:54 Urine Protein (Auto) 15 mg/dL 08/30/25 09:54 Glucose (UA)(Auto) 0 mg/dL 08/30/25 09:54 Urine Ketones (Auto) Negative 08/30/25 09:54 Urine Blood (Auto) 10 Gagan/uL 08/30/25 09:54 Urine Nitrite (Auto) Negative 08/30/25 09:54 Urine Bilirubin (Auto) 0 mg/dL 08/30/25 09:54 Urine Urobilinogen (Auto) 0.2 mg/dL 08/30/25 09:54 Leukocyte Esterase (Auto) 0 Jason/uL 08/30/25 09:54 Assessment & Plan Assessment & Plan (1) Nocturia more than twice per night: Code(s): R35.1 - Nocturia Category: Medical (2) Weak urinary stream: Code(s): R39.12 - Poor urinary stream Category: Medical (3) Overactive bladder: Code(s): N32.81 - Overactive bladder Category: Medical Plan Twelve month follow-up Patient Instructions: This note is constructed using voice recognition software. While every effort has been made to ensure accuracy petroleum supply specialist errors may have been included. Imaging studies, laboratory and physical exam results were discussed and reviewed in detail. No major barriers to patient understanding were identified. An opportunity to ask questions regarding the treatment plan was provided. All questions were answered. The patient expressed understanding and agreement with the above treatment plan. The patient is aware they should contact our office by phone for worsening of their current condition or the appearance of new urologic symptoms. Compliance is encouraged with any medications and followup testing that is ordered. It is a privilege to participate in the urologic care of your patient. If you have any questions or concerns regarding treatment for the above conditions, or other urologic issues, please do not hesitate to contact me. The office telephone contact is [phone]. Sincerely, Dr Med Doran MD, [facility] - Urology Compassionate Specialist Care for the Genitourinary System Coding Level of Care Code Est Pt Level 3 (15540) Complex EM visit Add On G2211 Diagnoses Nocturia more than twice per night R35.1 Weak urinary stream R39.12 Overactive bladder N32.81 CPT Codes Post Residual Void - PVR CPT Code: 54547-Ueqa Void Residual by ultrasound ([id number])
== END 2025-08-30 10:11 | disposition home or self-care (01) ==
LOC: HO.HUSH 09:47
PROVIDERS: PCP Nurse Practitioner; Visit Provider Urology
DX: R35.1 Nocturia (principal); R39.12 Poor urinary stream; N32.81 Overactive bladder
CPT/HCPCS: 99213; G2211